=== PATIENT | female | born 1940 | race Two or more races ===

== ENCOUNTER → 2018-11-25 | Emergency (ER) | payer MEDICARE, OTHER ==
[~2018-11-25] VITALS: Ht 157.5 cm; Wt 40.4 kg
--- NOTE | 2018-11-25 03:05 | NUR ---
IV LINE INSERTED ON RAC G 20 INTACT AND PATENT WITH GOOD BLOOD RETURN.
[2018-11-25 03:09] LABS: BASOPHILS % (AUTO) 0.6 % (0.0-2.0); EOSINOPHILS % (AUTO) 1.9 % (0.0-6.0); HEMATOCRIT 42 % (33-45); HEMOGLOBIN 14.2 g/dL (11.5-14.8); LYMPHOCYTES # (AUTO) 1.4 /CMM (0.8-4.8); LYMPHOCYTES % (AUTO) 26.4 % (20.0-44.0); MEAN CORPUSCULAR HGB CONC 34 g/dl (31.0-36.0); MEAN CORPUSCULAR VOLUME 93 fL (82-100); MONOCYTES # (AUTO) 0.6 /CMM (0.1-1.30); MONOCYTES % (AUTO) 10.5 % (2.0-12.0); NEUTROPHILS # (AUTO) 3.3 /CMM (1.8-8.9); NEUTROPHILS % (AUTO) 60.6 % (43.0-81.0); PLATELET COUNT (AUTO) 238 /CMM (150-450); RED BLOOD CELL COUNT(AUTO) 4.53 MIL/uL (4.0-5.2); WHITE BLOOD COUNT (AUTO) 5.4 K/uL (4.3-11.0)
[2018-11-25 03:13] LABS: CALCIUM, SERUM 8.9 mg/dL (8.5-10.1); CARBON DIOXIDE 29 mmol/L (21-32); CHLORIDE 104 mmol/L (98-107); GLUCOSE 97 mg/dL (74-106); POTASSIUM 4.2 mmol/L (3.5-5.1); SODIUM SERUM 143 mmol/L (136-145); UREA NITROGEN, BLOOD 18 mg/dL (7-18)
--- NOTE | 2018-11-25 03:13 | NUR ---
CXR DONE AT BEDSIDE.
--- NOTE | 2018-11-25 05:14 | NUR ---
Patient discharged to home in stable condition. Written and verbal after care instructions given. Patient verbalizes understanding of instruction. VSS.Pt. ambulatory with a steady gait. IV removed. Catheter intact and site benign. Pressure and 4x4 applied to site. No bleeding noted.
[2018-11-25 05:17] VITALS: BP 143/85
== END | disposition home or self-care (01) ==
LOC: ER 02:24
DX: F41.0 Panic disorder [episodic paroxysmal anxiety] (principal); I10 Essential (primary) hypertension; Z90.710 Acquired absence of both cervix and uterus; Z85.850 Personal history of malignant neoplasm of thyroid; Z98.890 Other specified postprocedural states
CPT/HCPCS: 36415; 71045-TC; 80048-TC; 84484-TC; 85025-TC

== ENCOUNTER 2019-01-27 07:57 | Inpatient (IN) | payer MEDICARE, OTHER ==
[~2019-01-27] VITALS: Ht 157.5 cm; Wt 39.5 kg
--- NOTE | 2019-01-27 08:08 | NUR ---
from [facility] ([facility]), bb ems to er - c/o chest pain, started at 0600 am today
--- NOTE | 2019-01-27 08:20 | NUR ---
IV LINE ESTABLISHED ON R FA G20 IV. BLOOD DRAWN AND SENT TO LAB. PATIENT ATTACHED TO THE COMMERCIAL ELECTRICIAN.
[2019-01-27 08:29] LABS: BASOPHILS % (AUTO) 0.7 % (0.0-2.0); EOSINOPHILS % (AUTO) 0.6 % (0.0-6.0); HEMATOCRIT 43 % (33-45); HEMOGLOBIN 14.6 g/dL (11.5-14.8); LYMPHOCYTES # (AUTO) 0.7 /CMM (0.8-4.8); LYMPHOCYTES % (AUTO) 13.4 % (20.0-44.0); MEAN CORPUSCULAR HGB CONC 34 g/dl (31.0-36.0); MEAN CORPUSCULAR VOLUME 93 fL (82-100); MONOCYTES # (AUTO) 0.4 /CMM (0.1-1.30); MONOCYTES % (AUTO) 6.5 % (2.0-12.0); NEUTROPHILS # (AUTO) 4.3 /CMM (1.8-8.9); NEUTROPHILS % (AUTO) 78.8 % (43.0-81.0); PLATELET COUNT (AUTO) 241 /CMM (150-450); RED BLOOD CELL COUNT(AUTO) 4.62 MIL/uL (4.0-5.2); WHITE BLOOD COUNT (AUTO) 5.4 K/uL (4.3-11.0)
[2019-01-27 08:34] LABS: CALCIUM, SERUM 9.3 mg/dL (8.5-10.1); CARBON DIOXIDE 28 mmol/L (21-32); CHLORIDE 103 mmol/L (98-107); CREATININE 0.9 mg/dL (0.6-1.3); GLUCOSE 98 mg/dL (74-106); POTASSIUM 3.3 mmol/L (3.5-5.1); SODIUM SERUM 142 mmol/L (136-145); UREA NITROGEN, BLOOD 12 mg/dL (7-18)
--- NOTE | 2019-01-27 08:57 | NUR ---
PCP: Dr. Chucho Painting Internal medicine [address] [address] [phone]
[2019-01-27] MEDS ORDERED: TYL2T PO (09:07)
[2019-01-27] MEDS ORDERED: ACET325T53 PO (09:22)
[2019-01-27] MEDS ORDERED: ZOLP5TAB2 PO (09:22)
[2019-01-27] MEDS ORDERED: DOCU-141 PO (09:22)
[2019-01-27] MEDS ORDERED: RANI150T8 PO (09:22)
[2019-01-27] MEDS ORDERED: BISA10SU61 RC (09:22)
[2019-01-27] MEDS ORDERED: NA P66.6 RC (09:22)
[2019-01-27] MEDS ORDERED: CLON0.5T PO (09:22)
[2019-01-27] MEDS ORDERED: [UNRECOGNIZED DRUG - OTHER] PO (09:22)
[2019-01-27] MEDS ORDERED: MAGN400O6 PO (09:22)
[2019-01-27] MEDS ORDERED: METO-357 PO (09:22)
[2019-01-27] MEDS ORDERED: AMLO2.5T2 PO (09:22)
[2019-01-27] MEDS ORDERED: SERT25TA PO (09:22)
[2019-01-27] MEDS ORDERED: ASPI-605 PO (09:22)
[2019-01-27] MEDS ORDERED: OLME20TA13 PO (09:22)
[2019-01-27] MEDS ORDERED: SENN-175 PO (09:22)
[2019-01-27] MEDS ORDERED: LEVO25TA7 PO (09:22)
--- NOTE | 2019-01-27 09:35 | NUR ---
REPORT GIVEN TO ROB ADAMSON FOR ARANZA.
--- NOTE | 2019-01-27 10:08 | NUR ---
PATIENT TRANSFERRED TO ROOM 107 VIA ACLS PROTOCOL, IN STABLE CONDITION.
[2019-01-27] MEDS ORDERED: MAGNESIUM HYDROXIDE 30 ML UDC PO PRN (11:30)
[2019-01-27] MEDS ORDERED: BISACODYL SUPP (10 MG) 10 MG/SUPP.RECT SUPP.RECT RC PRN (11:30)
[2019-01-27] MEDS ORDERED: ACETAMINOPHEN 325 MG TABLET PO PRN (11:30)
[2019-01-27 12:00] VITALS: BP 137/67
[2019-01-27] MEDS ORDERED: LORAZEPAM 0.5 MG TABLET PO ONE (12:00)
[2019-01-27] MEDS ORDERED: NA PHOS,M-B/NA PHOS,DI-BA 1 EA ENEMA RC PRN (12:00)
[2019-01-27] MEDS: ENOXAPARIN SODIUM 40 MG/0.4 ML DISP.SYRIN SQ SCH (12:12)
[2019-01-27] MEDS ORDERED: IOHEXOL-350 100 ML VIAL IV ONE (14:49)
[2019-01-27] MEDS ORDERED: CT SWABBABLE VALVE TRANS SET 1 EA INFUS.SET MC ONE (14:49)
[2019-01-27] MEDS ORDERED: IV NS 0.9% 250 ML IV ONE ×2 (14:50)
[2019-01-27] MEDS ORDERED: NITROGLYCERIN 0.4 MG/TAB BOTTLE SL ONE (15:00)
[2019-01-27] MEDS ORDERED: METOPROLOL TARTRATE INJ 5 MG/5 ML AMPUL IVP ONE (15:00)
[2019-01-27 16:00] VITALS: BP 105/68
[2019-01-27] MEDS: ACETAMINOPHEN 325 MG TABLET PO PRN (17:47)
[2019-01-27] MEDS: AMLODIPINE BESYLATE 2.5 MG TABLET PO SCH (17:47)
[2019-01-27] MEDS: DOCUSATE SODIUM 100 MG CAPSULE PO SCH (17:54)
--- NOTE | 2019-01-27 19:25 | NUR ---
RN OPENING NOTES RECEIVED PATIENT VIA GURNEY FROM ER. SHE IS AOX4, VERBAL, AND AMBULATORY. SHE DENIES ANY PAIN OR DISCOMFORT AT THIS TIME. SKIN IS INTACT, NO WOUNDS NOTICED OPEN ADMISSION. FAMILY HISTORY OBTAINED. LUNG SOUNDS CLEAR ON ALL HOROWITZ. ABDOMEN IS SOFT, HYPERACTIVE. EYES ARE PERRLA. NOSE, MOUTH, EARS HAVE NO ABNORMALITIES. ALLERGIES DOCUMENTED AND IN PT CHART. EXTREMITIES HAVE NORMAL STRENGTH, PT HAS STEADY GAIT. SAFETY MEASURES HAVE BEEN IMPLEMENTED, CALL LIGHT IS WITHIN REACH, BED IS IN LOWEST AND LOCKED POSITION, SIDE RAILS UP X2, WILL CONTINUE TO MONITOR FOR ANY CHANGES Addendum: 01/27/19 at 1929 by JAVIER LINARES RN WRONG TIME: PT CAME INTO THE UNIT AT 1000
--- NOTE | 2019-01-27 19:29 | NUR ---
RN CLOSING NOTES PATIENT IS RESTING COMFORTABLY AT THIS TIME, DENIES ANY PAIN OR DISCOMFORT. PT NEEDS MET, VITAL SIGNS ARE STABLE. NO ACUTE CHANGES OCCURRED THROUGHOUT THE SHIFT. IV SITE ON LEFT AC 18 G PATENT AND INTACT. SAFETY MEASURES HAVE BEEN IMPLEMENTED, CALL LIGHT IS WITHIN REACH, BED IS IN LOWEST AND LOCKED POSITION, SIDE RAILS UP X2, PT HAS BEEN ENDORSED TO NIGHTSHIFT RN FOR CONTINUITY OF CARE
[2019-01-27 20:00] VITALS: BP 109/53
[2019-01-27] MEDS: SENNOSIDES 8.6 MG TABLET PO SCH (21:35)
[2019-01-27] MEDS: clonazePAM 0.5 MG TABLET PO SCH (21:35)
[2019-01-27] MEDS: METOPROLOL SUCCINATE 50 MG TAB.SR.24H PO SCH (21:36)
[2019-01-28 04:00] VITALS: BP 120/59
[2019-01-28 05:59] LABS: EOSINOPHILS % (AUTO) 2.7 % (0.0-6.0); HEMATOCRIT 39 % (33-45); HEMOGLOBIN 13.2 g/dL (11.5-14.8); LYMPHOCYTES # (AUTO) 0.8 /CMM (0.8-4.8); LYMPHOCYTES % (AUTO) 21.8 % (20.0-44.0); MEAN CORPUSCULAR HGB CONC 34 g/dl (31.0-36.0); MEAN CORPUSCULAR VOLUME 93 fL (82-100); MONOCYTES # (AUTO) 0.4 /CMM (0.1-1.30); MONOCYTES % (AUTO) 9.4 % (2.0-12.0); NEUTROPHILS # (AUTO) 2.5 /CMM (1.8-8.9); NEUTROPHILS % (AUTO) 65.1 % (43.0-81.0); PLATELET COUNT (AUTO) 214 /CMM (150-450); RED BLOOD CELL COUNT(AUTO) 4.21 MIL/uL (4.0-5.2); WHITE BLOOD COUNT (AUTO) 3.8 K/uL (4.3-11.0)
[2019-01-28 06:58] LABS: THYROID STIMULATING HORMONE 23.341 uIU/mL (0.358-3.74)
[2019-01-28 07:01] LABS: ALBUMIN 3.1 g/dL (3.4-5.0); BILIRUBIN,TOTAL 0.5 mg/dL (0.2-1.0); CALCIUM, SERUM 8.9 mg/dL (8.5-10.1); CREATININE 0.9 mg/dL (0.6-1.3); MAGNESIUM 1.9 mg/dL (1.8-2.4); PHOSPHORUS 3.8 mg/dL (2.5-4.9); POTASSIUM 3.1 mmol/L (3.5-5.1); TOTAL PROTEIN, SERUM 6.5 g/dL (6.4-8.2)
[2019-01-28 08:00] VITALS: BP 120/74
--- NOTE | 2019-01-28 08:00 | NUR ---
MS RN NOTES RECEIVED PT SITTING IN BED COMFORTABLY, A/O X4. NO SIGN OF DISCOMFORT NOTED AT THIS TIME. DENIES ANY PAIN OR DISCOMFORT. IV SITE ON LEFT AC 18 G PATENT AND INTACT FLUSHED WITH SALINE WELL. ALL SAFETY MEASURES HAVE BEEN IMPLEMENTED, CALL LIGHT IS WITHIN REACH, BED IS IN LOWEST POSITION AND LOCKED , SIDE RAILS UP X2.
[2019-01-28] MEDS ORDERED: LEVOTHYROXINE SODIUM 25 MCG TABLET PO SCH (09:00)
[2019-01-28] MEDS: LOSARTAN POTASSIUM 50 MG TABLET PO SCH (09:00)
[2019-01-28] MEDS: SERTRALINE HCL 25 MG TABLET PO SCH (09:16)
[2019-01-28] MEDS: ASPIRIN EC 81 MG TABLET.DR PO SCH (09:17)
[2019-01-28] MEDS: AMLODIPINE BESYLATE 2.5 MG TABLET PO SCH ×2 (09:17→18:03)
[2019-01-28] MEDS: clonazePAM 0.5 MG TABLET PO SCH ×2 (09:18→21:22)
[2019-01-28] MEDS: ENOXAPARIN SODIUM 40 MG/0.4 ML DISP.SYRIN SQ SCH (09:22)
[2019-01-28] MEDS: POTASSIUM CHLORIDE 20 MEQ TAB.PRT.SR PO SCH ×2 (11:35→13:54)
[2019-01-28 16:00] VITALS: BP 126/65
[2019-01-28] MEDS: DOCUSATE SODIUM 100 MG CAPSULE PO SCH (17:13)
--- NOTE | 2019-01-28 17:13 | NUR ---
MS RN NOTES PT HAD BM TODAY AND COLACE WAS HELD.
[2019-01-28] MEDS ORDERED: RIVAROXABAN 10 MG TABLET PO SCH (18:00)
--- NOTE | 2019-01-28 19:10 | NUR ---
MS RN NOTES CLOSING PATIENT IS SITTING IN THE BED COMFORTABLY A/O X4. PT FRIEND AT BEDSIDE. DENIES ANY PAIN OR DISCOMFORT. ALL PT NEEDS MET, VITAL SIGNS ARE STABLE. NO SUDDEN CHANGES OCCURRED THROUGHOUT THE SHIFT. PT WAS AMBULATORY AND SHE WALKED IN HALLWAY DURING DAY. IV SITE ON LEFT AC 18 G PATENT AND INTACT, FLUSHED WELL WITH NS. SAFETY MEASURES HAVE BEEN IMPLEMENTED, CALL LIGHT IS WITHIN REACH, BED IS IN LOWEST AND LOCKED POSITION, SIDE RAILS UP X2, PT HAS BEEN ENDORSED TO NIGHTSHIFT RN .
[2019-01-28 20:00] VITALS: BP 132/87
--- NOTE | 2019-01-28 20:00 | NUR ---
RN NOTE PATIENT REQUESTED TO SHOWER WITH ASSISTANCE, CALLED DR TAMIKO PEIRCE, PER DR TAMIKO PARK TO SHOWER, ALL SAFETY MEASURES TAKEN
[2019-01-28] MEDS: SENNOSIDES 8.6 MG TABLET PO SCH ×2 (21:22→21:25)
[2019-01-28] MEDS: METOPROLOL SUCCINATE 50 MG TAB.SR.24H PO SCH (21:22)
[2019-01-29] MEDS: ACETAMINOPHEN 325 MG TABLET PO PRN (01:07)
[2019-01-29 04:00] VITALS: BP 115/72
[2019-01-29 06:13] LABS: BASOPHILS # (AUTO) 0.1 /CMM (0.0-0.2); BASOPHILS % (AUTO) 1.7 % (0.0-2.0); EOSINOPHILS % (AUTO) 2.9 % (0.0-6.0); HEMATOCRIT 38 % (33-45); LYMPHOCYTES # (AUTO) 0.9 /CMM (0.8-4.8); LYMPHOCYTES % (AUTO) 23.4 % (20.0-44.0); MEAN CORPUSCULAR HGB CONC 34 g/dl (31.0-36.0); MEAN CORPUSCULAR VOLUME 93 fL (82-100); MONOCYTES # (AUTO) 0.4 /CMM (0.1-1.30); MONOCYTES % (AUTO) 10.8 % (2.0-12.0); NEUTROPHILS # (AUTO) 2.3 /CMM (1.8-8.9); NEUTROPHILS % (AUTO) 61.2 % (43.0-81.0); PLATELET COUNT (AUTO) 208 /CMM (150-450); RED BLOOD CELL COUNT(AUTO) 4.12 MIL/uL (4.0-5.2); WHITE BLOOD COUNT (AUTO) 3.8 K/uL (4.3-11.0)
[2019-01-29 06:47] LABS: CALCIUM, SERUM 8.8 mg/dL (8.5-10.1); CREATININE 0.8 mg/dL (0.6-1.3); MAGNESIUM 2.1 mg/dL (1.8-2.4); PHOSPHORUS 3.5 mg/dL (2.5-4.9); POTASSIUM 3.6 mmol/L (3.5-5.1)
--- NOTE | 2019-01-29 07:12 | NUR ---
RN NOTE PATIENT WOULD LIKE DR COELHO TO SPEAK TO DR PISANO HER PRIMARY PICC NURSE TO DISCUSS ANXIETY ISSUES, WILL ENDORSE TO AM SHIFT TO LET DR COELHO ONCE HE SEES PATIENT
[2019-01-29 08:00] VITALS: BP 129/60
[2019-01-29] MEDS: clonazePAM 0.5 MG TABLET PO SCH (08:31)
[2019-01-29] MEDS: LOSARTAN POTASSIUM 50 MG TABLET PO SCH (08:33)
[2019-01-29] MEDS: SERTRALINE HCL 25 MG TABLET PO SCH (08:34)
[2019-01-29] MEDS: ASPIRIN EC 81 MG TABLET.DR PO SCH (08:34)
--- NOTE | 2019-01-29 08:40 | NUR ---
MS RN NOTE PT IS CRYING AND WORRIED TO HAVE PANIC ATTACK. TRIED TO CALM PT AND ALL MEDS TO BE GIVEN. WILL CONT' TO MONITOR.
[2019-01-29] MEDS ORDERED: LEVOTHYROXINE SODIUM 25 MCG TABLET PO SCH (09:00)
--- NOTE | 2019-01-29 09:30 | NUR ---
RN MS NOTE PT ASKED TO ASK OUR MANAGER WOUND TO CALL HER MANAGER WOUND (DR. SELENA PATEL [phone]). DR COELHO MADE AWARE.
[2019-01-29] MEDS: AMLODIPINE BESYLATE 2.5 MG TABLET PO SCH (09:44)
[2019-01-29] MEDS ORDERED: RIVA10TA PO (11:32)
--- NOTE | 2019-01-29 14:11 | NUR ---
MS RN NOTE RECEIVED A CALL FROM PATIENT'S PSYCHOLOGIST, DR. JUSTIN AND PER HER PATIENT IS HAVING PSYCH ISSUES AND IT IS NOT SAFE TO BE DISCHARGED TO HOME. CHARGE NURSE MADE AWARE.
[2019-01-29 16:00] VITALS: BP 138/68
--- NOTE | 2019-01-29 16:25 | NUR ---
RN MS NOTE PARAMEDICS AT BEDSIDE. PT TO BE DISCHARGED TO THE [facility]. PT REFUSED TO GO TO THE REHAB AND WANTS TO GO HOME. INDUSTRIAL ECONOMIST CAME AND TALKED TO THE PT. PT DISCHARGED TO THE REHAB. VS TABLE.
== END 2019-01-29 17:46 | DRG 313 ==
LOC: ER 07:58 → TELE1 09:22 → MEDSG1 12:00
PROVIDERS: ADMIT Nurse Practitioner Acute Care; ATTEND Internal Medicine
DX: R07.89 Other chest pain (principal); E44.0 Moderate protein-calorie malnutrition; Z68.1 Body mass index [BMI] 19.9 or less, adult; F45.9 Somatoform disorder, unspecified; F41.9 Anxiety disorder, unspecified; F32.9 Major depressive disorder, single episode, unspecified; E87.6 Hypokalemia; I10 Essential (primary) hypertension; I25.2 Old myocardial infarction; Z90.710 Acquired absence of both cervix and uterus; I51.3 Intracardiac thrombosis, not elsewhere classified; E89.0 Postprocedural hypothyroidism; I25.10 Atherosclerotic heart disease of native coronary artery without angina pectoris
CPT/HCPCS: 36415; 71045-TC; 75574; 80048-TC; 80053-TC; 80061-TC; 83540-TC; 83735-TC; 84100-TC; 84443-TC; 84484-TC; 85025-TC; 87081-TC; 93307-TC; G0378; J1650; J7050; Q9967

== ENCOUNTER 2019-01-31 09:57 | Emergency (ER) | payer MEDICARE, OTHER ==
[~2019-01-31] VITALS: Ht 154.9 cm; Wt 39.9 kg
[~2019-01-31 09:57] MED LIST: ACET325T53 PO; AMLO2.5T2 PO; ASPI-605 PO; BISA10SU61 RC; CLON0.5T PO; DOCU-141 PO; LEVO25TA7 PO; MAGN400O6 PO; METO-357 PO; NA P66.6 RC; OLME20TA13 PO; RANI150T8 PO; RIVA10TA PO; SENN-175 PO; SERT25TA PO; TYL2T PO; ZOLP5TAB2 PO; [UNRECOGNIZED DRUG - OTHER] PO
--- NOTE | 2019-01-31 10:24 | NUR ---
ASSUME PT CARE, PT IS ANXIOUS STATING SHE'S BEEN HAVING CHEST PAIN AND SEVERE PANIC ATTACKS FOR A WHILE NOW. WAS SEEN IN ED 2 DAYS AGO. GOWNED AND PLACED ON MONITOR. PROVIDED W/ COMFORT MEASURES. AWAITING MD LUNA.
--- NOTE | 2019-01-31 10:26 | NUR ---
DR MOORE AT BEDSIDE FOR EVAL.
--- NOTE | 2019-01-31 10:38 | NUR ---
IV LINE STARTED BLOOD DRAWN AND SENT TO LAB.
[2019-01-31 10:41] LABS: BASOPHILS % (AUTO) 0.5 % (0.0-2.0); EOSINOPHILS % (AUTO) 0.3 % (0.0-6.0); HEMATOCRIT 41 % (33-45); HEMOGLOBIN 13.7 g/dL (11.5-14.8); LYMPHOCYTES # (AUTO) 0.7 /CMM (0.8-4.8); LYMPHOCYTES % (AUTO) 15.2 % (20.0-44.0); MEAN CORPUSCULAR HGB CONC 34 g/dl (31.0-36.0); MEAN CORPUSCULAR VOLUME 94 fL (82-100); MONOCYTES # (AUTO) 0.4 /CMM (0.1-1.30); MONOCYTES % (AUTO) 8.7 % (2.0-12.0); NEUTROPHILS # (AUTO) 3.4 /CMM (1.8-8.9); NEUTROPHILS % (AUTO) 75.3 % (43.0-81.0); PLATELET COUNT (AUTO) 232 /CMM (150-450); RED BLOOD CELL COUNT(AUTO) 4.35 MIL/uL (4.0-5.2); WHITE BLOOD COUNT (AUTO) 4.5 K/uL (4.3-11.0)
[2019-01-31 10:47] LABS: CALCIUM, SERUM 9.4 mg/dL (8.5-10.1); CARBON DIOXIDE 27 mmol/L (21-32); CHLORIDE 105 mmol/L (98-107); GLUCOSE 96 mg/dL (74-106); POTASSIUM 3.6 mmol/L (3.5-5.1); SODIUM SERUM 141 mmol/L (136-145); UREA NITROGEN, BLOOD 17 mg/dL (7-18)
--- NOTE | 2019-01-31 11:51 | NUR ---
CALLED TUNNEL MAN CLINICIAN TO SPEAK TO PT. WILL ARRIVE SHORTLY
--- NOTE | 2019-01-31 12:50 | NUR ---
ART BATH DESIGN SALES CONSULTANT AT BEDSIDE FOR EVAL.
--- NOTE | 2019-01-31 13:31 | NUR ---
Patient discharged to home in stable condition. Written and verbal after care instructions given. Patient verbalizes understanding of instruction.IV removed. Catheter intact and site benign. Pressure and 4x4 applied to site. No bleeding noted.
[2019-01-31 13:32] VITALS: BP 145/82
== END 2019-01-31 13:33 | disposition home or self-care (01) ==
LOC: ER 10:01
DX: F41.9 Anxiety disorder, unspecified (principal); R11.0 Nausea; G89.29 Other chronic pain; J90 Pleural effusion, not elsewhere classified; I11.9 Hypertensive heart disease without heart failure; I70.0 Atherosclerosis of aorta; Z90.710 Acquired absence of both cervix and uterus; Z98.890 Other specified postprocedural states; Z60.2 Problems related to living alone; Z79.82 Long term (current) use of aspirin; Z88.1 Allergy status to other antibiotic agents; Z88.6 Allergy status to analgesic agent; Z88.5 Allergy status to narcotic agent; Z91.048 Other nonmedicinal substance allergy status; Z88.3 Allergy status to other anti-infective agents; Z88.8 Allergy status to other drugs, medicaments and biological substances; Z88.9 Allergy status to unspecified drugs, medicaments and biological substances
CPT/HCPCS: 36415; 71045-TC; 80048-TC; 84484-TC; 85025-TC

== ENCOUNTER 2019-02-09 08:15 | Emergency (ER) | payer MEDICARE, OTHER ==
[~2019-02-09] VITALS: Ht 154.9 cm; Wt 42.2 kg
[2019-02-09] MEDS ORDERED: LOSARTAN POTASSIUM 50 MG TABLET PO ONE (08:18)
--- NOTE | 2019-02-09 08:25 | NUR ---
LE RAYMUNDO From Home "was having chest pain/pressure last night - to shoulders took extra dose amlodipine. Pain gone now" Patient a/ox4, appears to be anxious. No distress noted, needs attended. EMT tech at bedside for EKG.
--- NOTE | 2019-02-09 08:50 | NUR ---
PATIENT SEEN AND EXAMINED BY DR. NOVAK.
[2019-02-09 09:10] LABS: BASOPHILS % (AUTO) 0.9 % (0.0-2.0); HEMATOCRIT 43 % (33-45); HEMOGLOBIN 14.3 g/dL (11.5-14.8); LYMPHOCYTES # (AUTO) 0.7 /CMM (0.8-4.8); LYMPHOCYTES % (AUTO) 13.6 % (20.0-44.0); MEAN CORPUSCULAR HGB CONC 33 g/dl (31.0-36.0); MEAN CORPUSCULAR VOLUME 94 fL (82-100); MONOCYTES # (AUTO) 0.3 /CMM (0.1-1.30); MONOCYTES % (AUTO) 5.9 % (2.0-12.0); NEUTROPHILS # (AUTO) 3.8 /CMM (1.8-8.9); NEUTROPHILS % (AUTO) 78.6 % (43.0-81.0); PLATELET COUNT (AUTO) 238 /CMM (150-450); RED BLOOD CELL COUNT(AUTO) 4.55 MIL/uL (4.0-5.2); WHITE BLOOD COUNT (AUTO) 4.9 K/uL (4.3-11.0)
[2019-02-09 09:29] LABS: CALCIUM, SERUM 9.1 mg/dL (8.5-10.1); POTASSIUM 3.4 mmol/L (3.5-5.1)
[2019-02-09] MEDS ORDERED: LOSARTAN POTASSIUM 25 MG TABLET PO ONE (10:30)
--- NOTE | 2019-02-09 11:00 | NUR ---
PATIENT DENIES PAIN AT THIS TIME. VITALS STABLE. NO DISTRESS NOTED.
--- NOTE | 2019-02-09 12:54 | NUR ---
Patient ambulatory with a steady gait. IV removed. Catheter intact and site benign. Pressure and 4x4 applied to site. No bleeding noted.Patient discharged to home in stable condition. Written and verbal after care instructions given. Patient verbalizes understanding of instruction.
[2019-02-09 12:55] VITALS: BP 125/76
== END 2019-02-09 12:55 | disposition home or self-care (01) ==
LOC: ER 08:17
DX: R07.89 Other chest pain (principal); F41.9 Anxiety disorder, unspecified; F43.10 Post-traumatic stress disorder, unspecified; I10 Essential (primary) hypertension; I21.9 Acute myocardial infarction, unspecified; R11.0 Nausea; Z90.710 Acquired absence of both cervix and uterus; Z98.890 Other specified postprocedural states; Z60.2 Problems related to living alone; Z79.82 Long term (current) use of aspirin; Z91.048 Other nonmedicinal substance allergy status; Z88.1 Allergy status to other antibiotic agents; Z88.8 Allergy status to other drugs, medicaments and biological substances; Z88.3 Allergy status to other anti-infective agents; Z88.6 Allergy status to analgesic agent
CPT/HCPCS: 36415; 80048-TC; 84484-TC; 85025-TC

== ENCOUNTER 2019-04-30 02:33 | Inpatient (IN) | payer MEDICARE, OTHER ==
[~2019-04-30] VITALS: Ht 160 cm; Wt 40.8 kg
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
[2019-04-30] MEDS ORDERED: LORAZEPAM INJ 2 MG/ML VIAL IV ONE (03:00)
[2019-04-30] MEDS ORDERED: IV NS 0.9% 500 ML BAG IV ONE (03:00)
--- NOTE | 2019-04-30 03:01 | NUR ---
IV LINE ESTABLISHED ON RIGHT FORE ARM 20G, BLOOD DRAWN AND SENT TO LAB
[2019-04-30] MEDS ORDERED: LORAZEPAM INJ 2 MG/ML VIAL ONE (03:08)
--- NOTE | 2019-04-30 03:08 | NUR ---
COUNCILLOR ABORIGINAL LAND COUNCIL AT BEDSIDE
[2019-04-30 03:13] LABS: BASOPHILS # (AUTO) 0.1 /CMM (0.0-0.2); BASOPHILS % (AUTO) 0.9 % (0.0-2.0); EOSINOPHILS % (AUTO) 1.2 % (0.0-6.0); HEMATOCRIT 43 % (33-45); HEMOGLOBIN 14.1 g/dL (11.5-14.8); LYMPHOCYTES # (AUTO) 1.3 /CMM (0.8-4.8); LYMPHOCYTES % (AUTO) 24.1 % (20.0-44.0); MEAN CORPUSCULAR HGB CONC 33 g/dl (31.0-36.0); MEAN CORPUSCULAR VOLUME 90 fL (82-100); MONOCYTES # (AUTO) 0.5 /CMM (0.1-1.30); MONOCYTES % (AUTO) 9.4 % (2.0-12.0); NEUTROPHILS # (AUTO) 3.6 /CMM (1.8-8.9); NEUTROPHILS % (AUTO) 64.4 % (43.0-81.0); PLATELET COUNT (AUTO) 315 /CMM (150-450); RED BLOOD CELL COUNT(AUTO) 4.85 MIL/uL (4.0-5.2); WHITE BLOOD COUNT (AUTO) 5.6 K/uL (4.3-11.0)
[2019-04-30 03:16] LABS: CALCIUM, SERUM 9.2 mg/dL (8.5-10.1); POTASSIUM 3.4 mmol/L (3.5-5.1)
[2019-04-30 03:26] LABS: ALBUMIN 3.9 g/dL (3.4-5.0); BILIRUBIN,DIRECT 0.1 mg/dL (0.0-0.2); BILIRUBIN,TOTAL 0.7 mg/dL (0.2-1.0); TOTAL PROTEIN, SERUM 8.6 g/dL (6.4-8.2)
--- NOTE | 2019-04-30 04:04 | NUR ---
PT IS ASLEEP. EASILY AROUSED THROUGH VERBAL AND MECHANICAL STIMULI. CONNECTED TO MONITOR. NOT IN ANY DISTRESS. BREATHING EVENLY AND UNLABORED. NO SOB. CALL LIGHT WITHIN REACH.
--- NOTE | 2019-04-30 05:34 | NUR ---
TELE 113-1
--- NOTE | 2019-04-30 05:54 | NUR ---
REPORT GIVEN TO ELIZABETH ADAMSON FOR ARANZA.
[2019-04-30] MEDS ORDERED: ONDANSETRON HCL/PF 4 MG/2 ML VIAL IVP PRN (06:00)
[2019-04-30] MEDS ORDERED: MAGNESIUM HYDROXIDE 30 ML UDC PO PRN ×2 (06:00)
[2019-04-30] MEDS ORDERED: Z GUARD REMEDY 2 OZ OINT TP PRN (06:00)
[2019-04-30] MEDS ORDERED: MAG HYDROX/AL HYDROX/SIMETH 30 ML UDC PO PRN (06:00)
[2019-04-30] MEDS ORDERED: BISACODYL SUPP (10 MG) 10 MG/SUPP.RECT SUPP.RECT RC PRN (06:00)
[2019-04-30] MEDS ORDERED: NA PHOS,M-B/NA PHOS,DI-BA 1 EA ENEMA RC PRN (06:00)
[2019-04-30] MEDS ORDERED: ZOLPIDEM TARTRATE 5 MG TABLET PO PRN ×2 (06:00)
[2019-04-30] MEDS ORDERED: HYDROCODONE/APAP 5/325MG 1 EACH TABLET PO PRN (06:00)
[2019-04-30] MEDS ORDERED: [UNRECOGNIZED DRUG - OTHER] PO PRN (06:00)
[2019-04-30] MEDS ORDERED: ACETAMINOPHEN 325 MG TABLET PO PRN ×2 (06:00)
--- NOTE | 2019-04-30 06:43 | NUR ---
SURVEILLANCE OBSERVER NOTE PT ARRIVED TO FLOOR VIA GURNEY ACCOMPANIED BY ER STAFF. PT IN STABLE CONDITION A/O X4, NO SIGNS OF SOB OR DISTRESS. NO C/O PAIN OR N/V. IV IN R FA#[address] TELE MONITOR: SR 96. ALL CURRENT NEEDS ATTENDED TO. SAFETY PRECAUTIONS IN PLACE. MD AWARE OF PT ARRIVAL TO FLOOR. BODY ASSESSED, PER REFUSED TO REMOVE BOTTOMS, STATED SHE IS COLD BUT ALSO STATES SHE HAS NO WOUNDS. VITAL SIGNS STABLE. WILL ENDORSE TO NEXT SHIFT FOR ARANZA.
--- NOTE | 2019-04-30 07:30 | NUR ---
RN MS NOTES PT IN BED, AWAKE, ALERT AND ORIENTED, DENIES PAIN, NOT IN DISTRESS, ABLE TO WALK TO THE BATHROOM WITH STEADY GAIT, CALL LIGHT WITHIN REACH, NEEDS ATTENDED.
[2019-04-30 08:00] VITALS: BP 141/84
[2019-04-30] MEDS: ENOXAPARIN SODIUM 30 MG/0.3 ML DISP.SYRIN SQ SCH (09:00)
[2019-04-30] MEDS: FUROSEMIDE 20 MG/2 ML VIAL IV SCH (09:00)
[2019-04-30] MEDS: SERTRALINE HCL 25 MG TABLET PO SCH (09:00)
[2019-04-30] MEDS: AMLODIPINE BESYLATE 2.5 MG TABLET PO SCH ×2 (09:00→17:00)
[2019-04-30] MEDS ORDERED: clonazePAM 0.5 MG TABLET PO SCH (09:00)
[2019-04-30] MEDS: ASPIRIN EC 81 MG TABLET.DR PO SCH (09:16)
[2019-04-30] MEDS: FAMOTIDINE (20 MG) 20 MG TABLET PO SCH ×2 (09:17→21:00)
[2019-04-30 10:27] LABS: THYROID STIMULATING HORMONE 10.55 uIU/mL (0.358-3.74)
[2019-04-30] MEDS: LOSARTAN POTASSIUM 50 MG TABLET PO SCH (11:00)
[2019-04-30] MEDS ORDERED: POTASSIUM CHLORIDE 10 MEQ TABLET.SA PO ONE (11:30)
[2019-04-30] MEDS: LEVOTHYROXINE SODIUM 25 MCG TABLET PO SCH (11:46)
[2019-04-30 12:00] VITALS: BP 114/85
--- NOTE | 2019-04-30 13:00 | NUR ---
RN MS NOTES PT IN BED, SEEN AND EXAMINED BY DR. GOMES AND DR. VEGA MD ORDERED CT ANGIO OF THE HEART, PT REFUSED, SAFETY PRECAUTIONS OBSERVED.
[2019-04-30] MEDS ORDERED: LORAZEPAM 0.5 MG TABLET PO PRN (15:30)
[2019-04-30 16:00] VITALS: BP 134/84
[2019-04-30] MEDS: ACETAMINOPHEN 325 MG TABLET PO PRN (16:28)
[2019-04-30] MEDS ORDERED: RIVAROXABAN 10 MG TABLET PO SCH (17:00)
[2019-04-30] MEDS: DOCUSATE SODIUM 100 MG CAPSULE PO SCH (18:00)
--- NOTE | 2019-04-30 18:08 | NUR ---
RN MS NOTES PT IN BED, AWAKE, ALERT AND ORIENTED, WITH COMPLAINT OF HEADACHE, TYLENOL GIVEN ORDERED, NOT IN DISTRESS, AMBULATES WITH STEADY GAIT, SAFETY PRECAUTIONS OBSERVED, SEEN AND EXAMINED BY DR. MYERS, PLAN OF CARE DISCUSSED WITH PT, VERBALIZED UNDERSTANDING, ALL NEEDS ATTENDED.
--- NOTE | 2019-04-30 19:15 | NUR ---
MS RN NOTES RECEIVED ON SITTING ON EDGE OF BED,DENIES ANY DISCOMFORTS.SALINE LOCK RFA INTACT AND PATENT.AMBULATE WITH STEADY GAIT.CALL LIGHT IN REACH,NEEDS ANTICIPATED.
[2019-04-30 20:00] VITALS: BP 136/86
[2019-04-30] MEDS: METOPROLOL SUCCINATE 50 MG TAB.SR.24H PO SCH ×2 (20:15→22:00)
--- NOTE | 2019-04-30 20:15 | NUR ---
MS RN NOTES BP 136/86,PULSE-73,MEDICATED WITH TOPROL XL 50MG PO,GIVEN EARLY PER PATIENT REQUEST.REFUSED PEPCID AND SENOKOT
[2019-04-30 22:00] VITALS: BP 136/86
[2019-04-30] MEDS: SENNOSIDES 8.6 MG TABLET PO SCH (22:00)
[2019-04-30] MEDS ORDERED: METOPROLOL SUCCINATE 50 MG TAB.SR.24H PO SCH (22:00)
[2019-05-01] MEDS: ACETAMINOPHEN 325 MG TABLET PO PRN ×3 (04:49→20:55)
--- NOTE | 2019-05-01 04:49 | NUR ---
MS RN NOTES C/O HEADACHE,MEDICATED WITH TYLENOL 325MG,PATIENT PREFERS ONLY ONE AND WILL THE OTHER 325 MG LATER.
--- NOTE | 2019-05-01 05:07 | NUR ---
MS RN NOTES AWAKE,AMBULATES IN THE HALLWAYS WITH STEADY GAIT.
[2019-05-01 06:28] LABS: BASOPHILS % (AUTO) 0.5 % (0.0-2.0); EOSINOPHILS % (AUTO) 2.4 % (0.0-6.0); HEMATOCRIT 45 % (33-45); HEMOGLOBIN 14.5 g/dL (11.5-14.8); LYMPHOCYTES # (AUTO) 1.2 /CMM (0.8-4.8); LYMPHOCYTES % (AUTO) 21.9 % (20.0-44.0); MEAN CORPUSCULAR HGB CONC 33 g/dl (31.0-36.0); MEAN CORPUSCULAR VOLUME 90 fL (82-100); MONOCYTES # (AUTO) 0.6 /CMM (0.1-1.30); MONOCYTES % (AUTO) 10.6 % (2.0-12.0); NEUTROPHILS # (AUTO) 3.5 /CMM (1.8-8.9); NEUTROPHILS % (AUTO) 64.6 % (43.0-81.0); PLATELET COUNT (AUTO) 320 /CMM (150-450); RED BLOOD CELL COUNT(AUTO) 4.98 MIL/uL (4.0-5.2); WHITE BLOOD COUNT (AUTO) 5.4 K/uL (4.3-11.0)
--- NOTE | 2019-05-01 06:40 | NUR ---
MS RN NOTES ON BED AWAKE,CLAIMED HEADACHE IMPROVED A LITTLE BIT,ABLE TO WALK ON THE HALLWAYS WITH STEADY GAIT.IN NO ACUTE DISTRESS.WILL ENDORSE TO DAY NURSE FOR ARANZA.
[2019-05-01 06:44] LABS: CALCIUM, SERUM 9.4 mg/dL (8.5-10.1); CREATININE 1.1 mg/dL (0.6-1.3); MAGNESIUM 2.3 mg/dL (1.8-2.4); PHOSPHORUS 3.8 mg/dL (2.5-4.9); POTASSIUM 3.7 mmol/L (3.5-5.1)
[2019-05-01 08:00] VITALS: BP 126/69
[2019-05-01] MEDS: LEVOTHYROXINE SODIUM 25 MCG TABLET PO SCH (08:40)
[2019-05-01] MEDS: SERTRALINE HCL 25 MG TABLET PO SCH (08:41)
[2019-05-01] MEDS: AMLODIPINE BESYLATE 2.5 MG TABLET PO SCH ×2 (09:00→17:00)
[2019-05-01] MEDS: FUROSEMIDE 20 MG/2 ML VIAL IV SCH (09:00)
[2019-05-01] MEDS: FAMOTIDINE (20 MG) 20 MG TABLET PO SCH ×2 (09:00→20:58)
[2019-05-01] MEDS: ENOXAPARIN SODIUM 30 MG/0.3 ML DISP.SYRIN SQ SCH (09:00)
[2019-05-01] MEDS: LOSARTAN POTASSIUM 50 MG TABLET PO SCH (09:00)
[2019-05-01] MEDS: ASPIRIN EC 81 MG TABLET.DR PO SCH (09:01)
[2019-05-01 10:42] VITALS: BP 126/69
--- NOTE | 2019-05-01 14:45 | NUR ---
SNOW MS NOTES PATIENT TAKEN FOR CTA, AWAKE AND ORIENTED X3 AND IN STABLE CONDITION.
[2019-05-01] MEDS ORDERED: IOHEXOL-350 100 ML VIAL IV ONE (14:52)
[2019-05-01] MEDS ORDERED: IV NS 0.9% 250 ML IV ONE (14:52)
[2019-05-01] MEDS ORDERED: METOPROLOL TARTRATE INJ 5 MG/5 ML AMPUL ONE (14:53)
[2019-05-01] MEDS ORDERED: METOPROLOL TARTRATE 50 MG TABLET PO PRN (15:00)
[2019-05-01] MEDS ORDERED: NITROGLYCERIN 0.4 MG/TAB BOTTLE SL PRN (15:00)
[2019-05-01] MEDS: METOPROLOL TARTRATE INJ 5 MG/5 ML AMPUL IVP PRN ×4 (15:00→15:15)
[2019-05-01 15:39] VITALS: BP 129/63
[2019-05-01] MEDS: DOCUSATE SODIUM 100 MG CAPSULE PO SCH (18:00)
--- NOTE | 2019-05-01 19:10 | NUR ---
RN MS CLOSING NOTES PATIENT ALERT AND ORIENTED X3, PATIENT DID NOT WANT TO BE DISCHARGED TONIGHT AND REQUESTED TO STAY OVER NIGHT. PATIENT REQUESTED TO TAKE A SHORT SHOWER. WILL TRANSFER PATIENT CARE TO NEXT SHIFT.
[2019-05-01 19:30] VITALS: BP 138/79
--- NOTE | 2019-05-01 19:30 | NUR ---
MS RN NOTES PATIENT IN BED AWAKE, ALERT AND ORIENTED X 3. BREATHING EVEN AND UNLABORED ON ROOM AIR. DENIES ACUTE RESPIRATORY DISTRESS, NO ACUTE PAIN. IV ON LAC 18G, CLEAN DRY AND INTACT. SHOWS NO SIGNS OF REDNESS, NO INFILTRATION. SAFETY PRECAUTIONS IN PLACE. BED IN LOWEST POSITION LOCKED AND CALL LIGHT KEPT WITHIN REACH. WILL CONTINUE TO MONITOR.
[2019-05-01 20:00] VITALS: BP 138/79
--- NOTE | 2019-05-01 20:55 | NUR ---
MS RN NOTES PATIENT COMPLAINED OF MILD PAIN. GIVEN TYLENOL PRN. WILL CONTINUE TO MONITOR.
[2019-05-01] MEDS: SENNOSIDES 8.6 MG TABLET PO SCH (21:01)
[2019-05-01] MEDS: METOPROLOL SUCCINATE 50 MG TAB.SR.24H PO SCH (21:05)
--- NOTE | 2019-05-01 22:00 | NUR ---
MS RN NOTES PATIENT REFUSED SENOKOT 2200 AND PEPCID 2100. WILL CONTINUE TO MONITOR.
[2019-05-02] VITALS (19 sets, daily range): BP systolic 110–160; BP diastolic 48–86
--- NOTE | 2019-05-02 06:36 | NUR ---
MS RN NOTES PATIENT IN BED AWAKE, ALERT AND ORIENTED X 3. BREATHING EVEN AND UNLABORED ON ROOM AIR. DENIES ACUTE RESPIRATORY DISTRESS, NO ACUTE PAIN. IV ON LAC 18G, CLEAN DRY AND INTACT. SHOWS NO SIGNS OF REDNESS, NO INFILTRATION. ALL DUE MEDICATIONS GIVEN. KEPT NPO AFTER MIDNIGHT. SAFETY PRECAUTIONS IN PLACE. BED IN LOWEST POSITION LOCKED AND CALL LIGHT KEPT WITHIN REACH. WILL ENDORSE TO ONCOMING NURSE
[2019-05-02] MEDS: ENOXAPARIN SODIUM 30 MG/0.3 ML DISP.SYRIN SQ SCH (08:27)
--- NOTE | 2019-05-02 08:28 | NUR ---
patient received npo for the scheduled cardiac catheterization today, ambulating and no signs of untoward manifestations. consent is signed Addendum: 05/02/19 at 0832 by JOSE NIEVES RN DR Allan in and seen patient .
[2019-05-02] MEDS: ASPIRIN EC 81 MG TABLET.DR PO SCH (08:31)
[2019-05-02] MEDS ORDERED: IODIXANOL 0 ML IV ONE (08:55)
[2019-05-02] MEDS: SERTRALINE HCL 25 MG TABLET PO SCH (09:00)
[2019-05-02] MEDS: FAMOTIDINE (20 MG) 20 MG TABLET PO SCH ×2 (09:00→21:00)
[2019-05-02] MEDS: LOSARTAN POTASSIUM 50 MG TABLET PO SCH (09:00)
[2019-05-02] MEDS: LEVOTHYROXINE SODIUM 25 MCG TABLET PO SCH (09:00)
[2019-05-02] MEDS: AMLODIPINE BESYLATE 2.5 MG TABLET PO SCH ×3 (09:00→17:27)
--- NOTE | 2019-05-02 10:15 | NUR ---
with complaints of nausea and anxiety, has allergy to zofran and nausea medication, will inform the physician
--- NOTE | 2019-05-02 10:17 | NUR ---
CHARGE NURSE CALLED CALLED DR GOMES AND INFORMED ABOUT THE PATIENT ANXIETY AND WITH ORDERS AND CARRIED OUT
[2019-05-02] MEDS: LORAZEPAM INJ 2 MG/ML VIAL IV PRN (10:41)
--- NOTE | 2019-05-02 10:42 | NUR ---
lorazepam 0.5 mg vip given for anxiety. jose e lab personell in and explained the procedure to the patient. patient is alert and oriented, Addendum: 05/02/19 at 1044 by JOSE NIEVES RN landscape and yardwork laborer personells in and explained the procedure to the patient and obtaining consent after the explaining of the procedure
--- NOTE | 2019-05-02 11:41 | NUR ---
asleep. npo amnd maintained
[2019-05-02] MEDS ORDERED: IODIXANOL 150 ML IV ONE (12:00)
[2019-05-02] MEDS ORDERED: IV SET PRIMARY PUMP SET 1 EA INFUS.SET MC ONE (12:00)
[2019-05-02] MEDS ORDERED: VERAPAMIL HCL IV 5 MG/2 ML VIAL ONE (12:00)
[2019-05-02] MEDS ORDERED: LIDOCAINE HCL/PF 1% 30 ML SDV ONE (12:00)
[2019-05-02] MEDS ORDERED: IV NS 0.9% 500 ML IV ONE (12:00)
[2019-05-02] MEDS ORDERED: NITROGLYCERIN ICAR 1,000 MCG/10 ML VIAL ICAR ONE (12:01)
[2019-05-02] MEDS ORDERED: HEPARIN SODIUM, PORCINE 1,000 UNIT/ML VIAL ONE (12:21)
[2019-05-02] MEDS ORDERED: FENTANYL PF 100MCG/2ML AMPUL ONE (12:26)
[2019-05-02] MEDS ORDERED: MIDAZOLAM HCL 2 MG/2ML VIAL ONE (12:26)
--- NOTE | 2019-05-02 12:26 | NUR ---
manager cath lab personell in and patient brought to the manager cath lab per hardeep .npo maintained informed consent signed ,
--- NOTE | 2019-05-02 12:47 | NUR ---
patient is still on the laborer road for the ordered procedure
--- NOTE | 2019-05-02 14:01 | NUR ---
patient is out for the scheduled procedure and not back yet
--- NOTE | 2019-05-02 14:15 | NUR ---
MICRO PALEONTOLOGIST ADMITTING NOTES Rec'd pt from pathology laboratory director via lulu, report rec'd from Juarez RN. Pt s/p coroangiogram (diagnostic only per report) by Dr. Bain w/ L radial TR band in place, no bleeding noted, good peripheral pulses, CMS intact. Pt is A/O x 4, denies any pain/discomfort at this time. No SOB while on R/A. SR on telemonitor. Has L AC G18, SL, flushing well, no s/sx of infection/infiltration noted. Safety precaution in place w/ bed in lowest & locked pos. Call light placed w/in reach. Will cont to monitor & attend pt needs.
[2019-05-02] MEDS ORDERED: IV NS 0.9% 1,000 ML IV ONE (14:30)
[2019-05-02] MEDS: ACETAMINOPHEN 325 MG TABLET PO PRN (15:32)
[2019-05-02] MEDS: DOCUSATE SODIUM 100 MG CAPSULE PO SCH (17:28)
--- NOTE | 2019-05-02 18:21 | NUR ---
SCALE ADJUSTER CLOSING NOTES Pt resting in bed comfortably, not in any distress, remains A/O x 4. No c/o SOB while on R/A. SR on telemonitor. IV line access kept patent & intact w/ no s/sx of infection/infiltration w/ NS x 100cc/hr infusing well (to run 5 hrs). L radial s/p TR band removal, negative for bleeding, good peripheral pulses, CMS remains intact. Health teaching re: after care for the catheter insertion site w/ verbalization of understanding but needs reinforcement (has tendency to forget). Safety precaution kept in place at all times w/ bed in lowest & locked pos. Call light placed w/in reach. Pt refused bed alarm despite of health teaching. Will endorse to PM RN for ARANZA.
[2019-05-02] MEDS: SENNOSIDES 8.6 MG TABLET PO SCH (21:14)
[2019-05-02] MEDS: METOPROLOL SUCCINATE 50 MG TAB.SR.24H PO SCH (21:17)
[2019-05-03] VITALS (16 sets, daily range): BP systolic 95–150; BP diastolic 60–97
[2019-05-03 04:54] LABS: EOSINOPHILS % (AUTO) 1.5 % (0.0-6.0); HEMATOCRIT 39 % (33-45); HEMOGLOBIN 12.7 g/dL (11.5-14.8); LYMPHOCYTES # (AUTO) 0.9 /CMM (0.8-4.8); LYMPHOCYTES % (AUTO) 21.2 % (20.0-44.0); MEAN CORPUSCULAR HGB CONC 33 g/dl (31.0-36.0); MEAN CORPUSCULAR VOLUME 88 fL (82-100); MONOCYTES # (AUTO) 0.4 /CMM (0.1-1.30); MONOCYTES % (AUTO) 10.1 % (2.0-12.0); NEUTROPHILS # (AUTO) 2.8 /CMM (1.8-8.9); NEUTROPHILS % (AUTO) 66.2 % (43.0-81.0); PLATELET COUNT (AUTO) 269 /CMM (150-450); WHITE BLOOD COUNT (AUTO) 4.2 K/uL (4.3-11.0)
[2019-05-03 05:00] LABS: CALCIUM, SERUM 8.8 mg/dL (8.5-10.1); CREATININE 0.8 mg/dL (0.6-1.3); POTASSIUM 3.5 mmol/L (3.5-5.1)
--- NOTE | 2019-05-03 07:10 | NUR ---
FIELD TEST ENGINEER INITIAL NOTES Rec'd pt on bed, not in any distress but little bit anxious, A/O x4, denies CP & discomfort. On R/A, sating at 98%. SR on telemonitor. IV line access on RFA G22, SL, patent & intact w/ no s/sx of infection/infiltration noted. L radial negative for bleeding, good peripheral pulses, CMS intact. Pt is ambulatory w/ steady gait. Skin is intact. Safety precaution in place w/ bed in lowest & locked pos. Call light placed w/in reach. Will cont to monitor & attend pt needs.
--- NOTE | 2019-05-03 08:20 | NUR ---
Pt seen & examined by Dr. Allan, spoke w/ the pt at bedside. MD adjusted the Cozaar to 50 mg PO BID. Per MD, may take Synthroid 50 mcg before lunch today & tomorrow may adjust it to every 6:30am.
[2019-05-03] MEDS: LOSARTAN POTASSIUM 50 MG TABLET PO SCH ×2 (08:46→17:12)
[2019-05-03] MEDS: ASPIRIN EC 81 MG TABLET.DR PO SCH (08:47)
[2019-05-03] MEDS: AMLODIPINE BESYLATE 2.5 MG TABLET PO SCH ×2 (08:48→17:12)
[2019-05-03] MEDS: ENOXAPARIN SODIUM 30 MG/0.3 ML DISP.SYRIN SQ SCH (09:00)
[2019-05-03] MEDS: FAMOTIDINE (20 MG) 20 MG TABLET PO SCH ×2 (09:00→21:00)
[2019-05-03] MEDS: SERTRALINE HCL 25 MG TABLET PO SCH (09:20)
--- NOTE | 2019-05-03 10:00 | NUR ---
QUALITY CONTROL CLERKFORWARDER OPERATOR NOTES Pt transferred to MS 310/1 as ordered. Pt remains A/O x 4, no c/o CP but highly anxious. VS WNL. IV line access kept patent & intact w/ no s/sx of infection/infiltration noted. Skin remains intact. L radial still negative for bleeding. All belongings sent w/ pt. Safety precaution kept in place at all times. Report given to Beckie ADAMSON for ARANZA. No concerns/issues identified during transfer.
--- NOTE | 2019-05-03 10:02 | NUR ---
Received patient awake A/O x 4. VS are stable and within baseline, on room air. IV line flushing well. PAtient educated to use call light for assistance.
[2019-05-03] MEDS ORDERED: LEVOTHYROXINE SODIUM 25 MCG TABLET PO ONE (11:30)
[2019-05-03] MEDS: LORAZEPAM INJ 2 MG/ML VIAL IV PRN ×2 (14:21→23:53)
[2019-05-03] MEDS ORDERED: RIVAROXABAN 10 MG TABLET PO SCH (17:00)
[2019-05-03] MEDS: DOCUSATE SODIUM 100 MG CAPSULE PO SCH (17:13)
--- NOTE | 2019-05-03 18:42 | NUR ---
Pt resting in bed comfortably, not in any distress, remains A/O x 4. No c/o SOB and on R/A. IV line access patent & intact. Safety precaution kept in place at all times w/ bed in lowest & locked pos. Call light placed w/in reach. Pt ambulatory with steady gait . Will endorse to next shift RN for ARANZA.
--- NOTE | 2019-05-03 19:15 | NUR ---
RN medsurg opening notes Received Pt from morning nurse. Pt is alert and orientedX4. Respiration is normal. No SOB. No nausea or vomiting. Pt denies any pain or discomfort at this time. IV sites at RFA# 20 is clean, intact, patent and flush without resistance. Instructed to call. Safety precautions is maintained. Bed at low position, brakes locked, side rails upX3 and call light is within reach. Will continue to monitor.
--- NOTE | 2019-05-03 19:59 | NUR ---
RN medsurdavid notes Pt is ambulating in the room and nursing station with a steady gait. NO SOB. Pt denies any pain or discomfort. Will continue to monitor.
--- NOTE | 2019-05-03 20:15 | NUR ---
RN medsur notes Pt is requesting for a shower. Contacting and informed Dr. Huber if Pt can have a shower tonight. Received order for shower. Will continue to monitor.
--- NOTE | 2019-05-03 20:38 | NUR ---
RN medsur notes Pt went to shower and accompanied by PHILLIP Kumar. Will continue to monitor.
--- NOTE | 2019-05-03 20:50 | NUR ---
RN medsurg notes Pt is back from the shower with PHILLIP Kumar. No SOB. No S/S of distress noted. Will continue to monitor.
--- NOTE | 2019-05-03 21:02 | NUR ---
RN medsurg notes Pt refused to take pepcid 20 mg/1 tab/po. Made aware risks and benefits. Pt keep refusing. Pt stated " I don't take this." Will continue to monitor.
[2019-05-03] MEDS: METOPROLOL SUCCINATE 50 MG TAB.SR.24H PO SCH (21:10)
[2019-05-03] MEDS: SENNOSIDES 8.6 MG TABLET PO SCH (21:10)
--- NOTE | 2019-05-03 21:11 | NUR ---
RN medsurg notes Pt refused senokot tab 8.6 mg/1tab/PO. Made aware risks and benefits. Will continue to monitor.
--- NOTE | 2019-05-03 23:53 | NUR ---
RN luis fernando notes Pt is feeling anxious. Administered ativan 0.5mg/0.25 ml as ordered for anxiety per Pt request. Safety precautions is maintained. Will continue to monitor.
[2019-05-04 06:30] LABS: BASOPHILS % (AUTO) 0.5 % (0.0-2.0); EOSINOPHILS % (AUTO) 1.6 % (0.0-6.0); HEMATOCRIT 40 % (33-45); LYMPHOCYTES % (AUTO) 22.8 % (20.0-44.0); MEAN CORPUSCULAR HGB CONC 33 g/dl (31.0-36.0); MEAN CORPUSCULAR VOLUME 89 fL (82-100); MONOCYTES # (AUTO) 0.6 /CMM (0.1-1.30); MONOCYTES % (AUTO) 12.2 % (2.0-12.0); NEUTROPHILS # (AUTO) 2.9 /CMM (1.8-8.9); NEUTROPHILS % (AUTO) 62.9 % (43.0-81.0); PLATELET COUNT (AUTO) 289 /CMM (150-450); RED BLOOD CELL COUNT(AUTO) 4.52 MIL/uL (4.0-5.2); WHITE BLOOD COUNT (AUTO) 4.6 K/uL (4.3-11.0)
[2019-05-04] MEDS ORDERED: LEVOTHYROXINE SODIUM 50 MCG TABLET PO SCH (06:30)
[2019-05-04 06:32] LABS: CALCIUM, SERUM 8.9 mg/dL (8.5-10.1); CREATININE 0.9 mg/dL (0.6-1.3); POTASSIUM 3.7 mmol/L (3.5-5.1)
--- NOTE | 2019-05-04 07:00 | NUR ---
MS/RN Opening note Patient received AOx 4, able to response all stimuli. Respiratory even and unlabored, no SOB or distress observed, skin is warm to touch, stable vital sign. Pt does no c/o chest pain discomfort. Call light within reach, will continue to monitor.
--- NOTE | 2019-05-04 07:00 | NUR ---
RN medsurg closing notes Pt is resting in bed comfortably. Pt is alert and orientedX4. Respiration is normal in room air. No SOB. No S/S of distress noted. VS is stable. IV sites at RFA is clean, intact and patent. Routine meds were given as ordered. Kept Pt clean, dry and comfortable. All needs met and attended. Safety precautions is maintained. Bed at low position, brakes locked, side rails upx3 and call light is within reach. Will endorse to morning nurse for ARANZA.
[2019-05-04 08:00] VITALS: BP 158/94
[2019-05-04] MEDS ORDERED: LOSA50TA3 PO (08:00)
[2019-05-04] MEDS ORDERED: LORA-259 PO (08:13)
[2019-05-04 08:21] VITALS: BP 158/94
[2019-05-04] MEDS: AMLODIPINE BESYLATE 2.5 MG TABLET PO SCH (08:21)
[2019-05-04] MEDS: LOSARTAN POTASSIUM 50 MG TABLET PO SCH (08:21)
[2019-05-04] MEDS: ASPIRIN EC 81 MG TABLET.DR PO SCH (08:24)
[2019-05-04] MEDS: SERTRALINE HCL 25 MG TABLET PO SCH (08:24)
[2019-05-04] MEDS: FAMOTIDINE (20 MG) 20 MG TABLET PO SCH (08:24)
[2019-05-04] MEDS: ACETAMINOPHEN 325 MG TABLET PO PRN (12:01)
--- NOTE | 2019-05-04 15:10 | NUR ---
Patient cleared for D/C by MD. Patient alert and oriented x4, breathing unlabored and even on room air ,with no distress noted. Patient's skin intact. Discharge instruction and new medication education provided, sight effects explained; patient verbalized understanding.D/C papers and valuable form sighed and all belongings with the patient.IV line removed , ID wrist band removed. Patient received prescription for Ativan and rest of meds sent to preferred pharmacy. Patient safely transferred to [facility] via wheelchair accompanied by nurse
[2019-05-25] MEDS ORDERED: DOXA1TAB17 PO (13:41)
== END 2019-05-04 15:26 | disposition home or self-care (01) | DRG 281 ==
LOC: ER 02:34 → TELE1 05:38 → TELE 06:07 → MED 15:08 → ICU 05-02 14:03 → MED 05-03 10:00
PROVIDERS: ADMIT Family Medicine; ATTEND Family Medicine
PROC: 4A023N7 Measurement of Cardiac Sampling and Pressure, Left Heart, Percutaneous Approach (ICD-10-PCS; principal; 2019-05-02)
PROC: B211YZZ Fluoroscopy of Multiple Coronary Arteries using Other Contrast (ICD-10-PCS; 2019-05-02)
DX: I16.0 Hypertensive urgency (principal); I21.A1 Myocardial infarction type 2; I50.32 Chronic diastolic (congestive) heart failure; I25.2 Old myocardial infarction; I11.0 Hypertensive heart disease with heart failure; E87.6 Hypokalemia; R73.9 Hyperglycemia, unspecified; Z79.01 Long term (current) use of anticoagulants; Z95.2 Presence of prosthetic heart valve; E89.0 Postprocedural hypothyroidism; R11.0 Nausea; Z88.2 Allergy status to sulfonamides; Z88.0 Allergy status to penicillin; F43.10 Post-traumatic stress disorder, unspecified; F41.1 Generalized anxiety disorder; F32.9 Major depressive disorder, single episode, unspecified; F41.0 Panic disorder [episodic paroxysmal anxiety]; I25.10 Atherosclerotic heart disease of native coronary artery without angina pectoris; Z88.6 Allergy status to analgesic agent; Z88.8 Allergy status to other drugs, medicaments and biological substances; Z88.1 Allergy status to other antibiotic agents; Z91.048 Other nonmedicinal substance allergy status; Z79.82 Long term (current) use of aspirin; Z79.899 Other long term (current) drug therapy
CPT/HCPCS: 36415; 71045-TC; 75574; 80048-TC; 80061-TC; 80076-TC; 83735-TC; 83880; 84100-TC; 84439-TC; 84443-TC; 84484-TC; 85025-TC; 85730-TC; 87081-TC; 93452; C1887; G0378; J1644; J1650; J1940; J2060; J2250; J3010; J3490; J7030; J7040; J7050; Q9967

== ENCOUNTER 2019-05-09 10:34 | Outpatient (CLI) | payer MEDICARE, OTHER ==
[~2019-05-09 10:34] MED LIST changes: -CLON0.5T PO; +LORA-259 PO; +LOSA50TA3 PO; -OLME20TA13 PO
[2019-05-09 10:40] VITALS: BP 152/94
== END 2019-05-09 23:59 | disposition home or self-care (01) ==
LOC: MSC 10:34
PROVIDERS: ATTEND Internal Medicine
DX: I21.4 Non-ST elevation (NSTEMI) myocardial infarction (principal); I10 Essential (primary) hypertension; I25.10 Atherosclerotic heart disease of native coronary artery without angina pectoris; F41.8 Other specified anxiety disorders; E43 Unspecified severe protein-calorie malnutrition; R64 Cachexia; E89.0 Postprocedural hypothyroidism; Z79.891 Long term (current) use of opiate analgesic; Z79.82 Long term (current) use of aspirin

== ENCOUNTER 2019-05-20 15:34 | Outpatient (CLI) | payer MEDICARE, OTHER ==
[2019-05-25] MEDS ORDERED: DOXA1TAB17 PO (13:41)
== END 2019-05-20 23:59 | disposition home or self-care (01) ==
LOC: MSC 15:34
PROVIDERS: ATTEND Internal Medicine
DX: I25.10 Atherosclerotic heart disease of native coronary artery without angina pectoris (principal); I10 Essential (primary) hypertension; I82.90 Acute embolism and thrombosis of unspecified vein; F41.8 Other specified anxiety disorders; E43 Unspecified severe protein-calorie malnutrition; R64 Cachexia; E89.0 Postprocedural hypothyroidism; Z90.89 Acquired absence of other organs

== ENCOUNTER 2019-05-23 23:08 | Inpatient (IN) | payer MEDICARE, OTHER ==
[~2019-05-23] VITALS: Ht 162.6 cm; Wt 43.1 kg
--- NOTE | 2019-05-23 23:19 | NUR ---
SEEN AND EXAMINED BY
[2019-05-23] MEDS ORDERED: ASPIRIN 81 MG TAB.CHEW ONE (23:24)
--- NOTE | 2019-05-23 23:25 | NUR ---
PT BIB RA FOR CHEST PAIN. PATIENT STATES THAT SHE WAS HOME ALONE AND SHE FELT ANXIOUS AND HAD CHEST PAIN. AAOX4. NO SOB. BREATHING EVENLY AND UNLABORED. CONNECTED TO THE MONITOR.
[2019-05-23] MEDS ORDERED: ASPIRIN 81 MG TAB.CHEW PO ONE (23:30)
[2019-05-23] MEDS ORDERED: LORAZEPAM INJ 2 MG/ML VIAL IV ONE (23:30)
[2019-05-23 23:44] LABS: BASOPHILS # (AUTO) 0.1 /CMM (0.0-0.2); BASOPHILS % (AUTO) 1.1 % (0.0-2.0); EOSINOPHILS % (AUTO) 3.4 % (0.0-6.0); HEMATOCRIT 40 % (33-45); HEMOGLOBIN 13.4 g/dL (11.5-14.8); LYMPHOCYTES # (AUTO) 1.3 /CMM (0.8-4.8); LYMPHOCYTES % (AUTO) 27.4 % (20.0-44.0); MEAN CORPUSCULAR HGB CONC 33 g/dl (31.0-36.0); MEAN CORPUSCULAR VOLUME 88 fL (82-100); MONOCYTES # (AUTO) 0.4 /CMM (0.1-1.30); MONOCYTES % (AUTO) 8.5 % (2.0-12.0); NEUTROPHILS # (AUTO) 2.8 /CMM (1.8-8.9); NEUTROPHILS % (AUTO) 59.6 % (43.0-81.0); PLATELET COUNT (AUTO) 276 /CMM (150-450); RED BLOOD CELL COUNT(AUTO) 4.57 MIL/uL (4.0-5.2); WHITE BLOOD COUNT (AUTO) 4.6 K/uL (4.3-11.0)
[2019-05-23 23:50] LABS: CALCIUM, SERUM 9.1 mg/dL (8.5-10.1); CARBON DIOXIDE 26 mmol/L (21-32); CHLORIDE 104 mmol/L (98-107); GLUCOSE 85 mg/dL (74-106); POTASSIUM 3.9 mmol/L (3.5-5.1); SODIUM SERUM 141 mmol/L (136-145); UREA NITROGEN, BLOOD 24 mg/dL (7-18)
[2019-05-24] MEDS ORDERED: LORAZEPAM 1 MG TABLET ONE (00:16)
[2019-05-24] MEDS ORDERED: LORAZEPAM INJ 2 MG/ML VIAL ONE (00:20)
--- NOTE | 2019-05-24 00:22 | NUR ---
PT IS GOING TO 115-1
[2019-05-24] MEDS ORDERED: IV NS 0.9% 1,000 ML IV PRN (00:30)
[2019-05-24] MEDS ORDERED: ZOLPIDEM TARTRATE 5 MG TABLET PO PRN (00:30)
[2019-05-24] MEDS ORDERED: ONDANSETRON HCL/PF 4 MG/2 ML VIAL IVP PRN (00:30)
[2019-05-24] MEDS ORDERED: HYDROCODONE/APAP 5/325MG 1 EACH TABLET PO PRN (00:30)
[2019-05-24] MEDS ORDERED: ACETAMINOPHEN 325 MG TABLET PO PRN (00:30)
[2019-05-24] MEDS: ATORVASTATIN 40 MG TABLET PO SCH ×3 (00:30→22:12)
--- NOTE | 2019-05-24 00:47 | NUR ---
report given to Fatoumata ADAMSON
[2019-05-24 01:20] VITALS: BP 125/64
--- NOTE | 2019-05-24 01:25 | NUR ---
LAW FIRM PARTNER OPENING NOTES: RECEIVED PT ON ROOM AIR AND IS TOLERATING WELL. NO SOB NOTED. NO S/S OF DISTRESS. PT HAS IV ON R FOREARM #20G AND IS BEING BOLUSED WITH A LITER OF NS FROM ER. PT A/OX3-4. PT TO BE PLACED ON TELE BOX. BED KEPT IN LOW, LOCKED POSITION, AND SIDE RAILS X 2UP. WILL CONTINUE TO MONITOR PT.
--- NOTE | 2019-05-24 01:30 | NUR ---
UPSET OPERATOR NOTES: PT REFUSING TO GIVE HER $164 BENNETT TO SECURITY. WOULD LIKE TO KEEP IT AT BEDSIDE NEXT TO HER.
[2019-05-24] MEDS: IV NS 0.9% 1,000 ML IV PRN (02:20)
[2019-05-24] MEDS: METOPROLOL SUCCINATE 50 MG TAB.SR.24H PO SCH ×2 (02:24→22:12)
--- NOTE | 2019-05-24 03:10 | NUR ---
LIVESTOCK INSPECTOR NOTES: AFTER EXPLANATION OF LIPITOR 40MG , PT STILL REFUSING TO TAKE MEDICATION. PT STATES SHE HAS NEVER TAKEN IT BEFORE AND NO BLOOD TESTS WERE DONE FOR HER CHOLESTEROL.
--- NOTE | 2019-05-24 03:46 | NUR ---
MOLD MAKING SUPERVISOR NOTES: PT REFUSING TO HAVE BED ALARM ON AFTER EXPLAINED TO HER RISKS OF NOT HAVING IT TURNED OFF. PT STILL REFUSING.
[2019-05-24 04:00] VITALS: BP 112/59
--- NOTE | 2019-05-24 06:19 | NUR ---
TRAINING SPECIALIST CLOSING NOTES: ALL NEEDS WERE ATTENDED AND ANTICIPATED FOR. PT KEPT CLEAN, DRY, AND COMFORTABLE. NO SOB NOTED. NO PAIN OR S/S OF DISTRESS. PT HAS IV ON R FOREARM AND IS BEING INFUSED WITH IV NS AT 75ML/HR. PT REFUSING TO HAVE BED ALARM ACTIVATED BUT WAS EDUCATED ON HOW TO USE CALL LIGHT FOR ASSISTANCE. BED KEPT IN LOW, LOCKED POSITION, AND SIDE RAILS X 2UP. PT ON TELE MONITOR AND READING SHOWS SR 64. WILL ENDORSE TO AM NURSE FOR ARANZA.
--- NOTE | 2019-05-24 07:10 | NUR ---
CARE TEAM COORDINATOR SCHEDULER NOTES PATIENT IN BED A/OX4 , AMBULATES WITH ASSISTANCE. NO SOB OR DISCOMFORT NOTED AT THIS TIME. PATIENT HAS ANXIETY WITH BED ALARM, BED ALARM AT OFF POSITION, INSTRUCTED PATIENT TO USE CALL LIGHT FOR USING BATHROOM AND HELP. CALL LIGHT WITHIN REACH , BED AT THE LOWEST POSITION LOCKED. WILL CONTINUE TO MONITOR PATIENT.
[2019-05-24 08:00] VITALS: BP 121/67
[2019-05-24] MEDS: LEVOTHYROXINE SODIUM 25 MCG TABLET PO SCH (08:43)
[2019-05-24] MEDS: FAMOTIDINE (20 MG) 20 MG TABLET PO SCH (09:00)
[2019-05-24] MEDS: SERTRALINE HCL 25 MG TABLET PO SCH (09:00)
[2019-05-24] MEDS: LOSARTAN POTASSIUM 50 MG TABLET PO SCH ×2 (09:24→18:05)
[2019-05-24] MEDS: AMLODIPINE BESYLATE 2.5 MG TABLET PO SCH ×2 (09:24→18:06)
[2019-05-24] MEDS: ASPIRIN 81 MG TAB.CHEW PO SCH (09:29)
[2019-05-24 12:00] VITALS: BP 121/67
[2019-05-24] MEDS: LORAZEPAM 1 MG TABLET PO PRN (15:23)
[2019-05-24] MEDS: RIVAROXABAN 10 MG TABLET PO SCH (17:00)
[2019-05-24] MEDS ORDERED: DOCUSATE SODIUM 100 MG CAPSULE PO SCH (18:00)
--- NOTE | 2019-05-24 19:18 | NUR ---
MS RN NOTES PATIENT A/OX4 IN BED AWAKE. IV ON RIGHT HAND PATIENT NS RUNNING 75ML/HR. NO MAJOR CHANGES DURING SHIFT. ALL NEEDS ATTENDED, ALL MEDS GIVEN.CALL LIGHT WITHIN REACH, BED LOCKED AT THE LOWEST POSITION. ENDORSED TO CASINO MANAGER NURSE FOR ARANZA.
[2019-05-24 20:00] VITALS: BP 116/61
--- NOTE | 2019-05-24 20:01 | NUR ---
RECEIVED ON BED AWAKE ,ALERT AND RESTING COMFORTABLY WITH NO PAIN CLAIMED, AMBULATED TO THE BATHROOM AND ASSITED BACK TO BED , TOLERATED WELL,WITH CALL LIGHT AT BEDSIDE
[2019-05-24] MEDS ORDERED: SENNOSIDES 8.6 MG TABLET PO SCH (22:00)
[2019-05-24] MEDS: DOXAZOSIN MESYLATE (1 MG) 1 MG TABLET PO SCH ×2 (22:00→22:14)
--- NOTE | 2019-05-24 22:53 | NUR ---
refused medications due. only took the metropolol dose. will inform physician in am
[2019-05-25] VITALS: BP 117/65
--- NOTE | 2019-05-25 00:39 | NUR ---
patient for transfer to room 202 and report given to Grace.
--- NOTE | 2019-05-25 00:55 | NUR ---
transfered via bed for further care. will inform the family in am
[2019-05-25 01:00] VITALS: BP_SYST 110; BP_DIAS 64; BP_DIAS 74
--- NOTE | 2019-05-25 01:00 | NUR ---
TRANSFER OF CARE RECEIVE PT VIA BED AT 0053 TRANSFER TO 202 FROM ROOM 115-1 PT A/O X 4, STABLE AND NOT IN APPARENT DISTRESS, KEPT CLEAN, DRY AND COMFORTABLE. SAFETY MEASURES AT ALL TIMES. WILL CONTINUE TO MONITOR. NO C/O PAIN
[2019-05-25] MEDS: IV NS 0.9% 1,000 ML IV PRN (02:23)
--- NOTE | 2019-05-25 06:26 | NUR ---
PT ASLEEP AND EASILY AWAKEN, NO S/S OF DISTRESS. AM CARE RENDERED, KEPT CLEAN, DRY AND COMFORTABLE. ALL NEEDS ATTENDED AND ANTICIPATED, SAFETY MEASURES AT ALL TIMES. WILL ENDORSE NEXT SHIFT POC. PT UPSET BEING TRANSFERRED TO HER NEW ROOM AT 0100. EXPLAINED AND EDUCATE PT. PT VERBALIZED UNDERSTANDING. NO C/O PAIN THROUGHOUT THE SHIFT.
[2019-05-25 06:48] LABS: EOSINOPHILS % (AUTO) 2.9 % (0.0-6.0); HEMATOCRIT 45 % (33-45); HEMOGLOBIN 14.6 g/dL (11.5-14.8); LYMPHOCYTES % (AUTO) 21.6 % (20.0-44.0); MEAN CORPUSCULAR HGB CONC 33 g/dl (31.0-36.0); MEAN CORPUSCULAR VOLUME 88 fL (82-100); MONOCYTES # (AUTO) 0.4 /CMM (0.1-1.30); MONOCYTES % (AUTO) 8.2 % (2.0-12.0); NEUTROPHILS # (AUTO) 3.1 /CMM (1.8-8.9); NEUTROPHILS % (AUTO) 66.3 % (43.0-81.0); PLATELET COUNT (AUTO) 277 /CMM (150-450); RED BLOOD CELL COUNT(AUTO) 5.05 MIL/uL (4.0-5.2); WHITE BLOOD COUNT (AUTO) 4.7 K/uL (4.3-11.0)
[2019-05-25] MEDS: LORAZEPAM 1 MG TABLET PO PRN (06:54)
[2019-05-25 07:03] LABS: CALCIUM, SERUM 9.2 mg/dL (8.5-10.1); CREATININE 0.8 mg/dL (0.6-1.3); MAGNESIUM 2.1 mg/dL (1.8-2.4); PHOSPHORUS 3.2 mg/dL (2.5-4.9); POTASSIUM 3.5 mmol/L (3.5-5.1)
--- NOTE | 2019-05-25 07:18 | NUR ---
RN OPENING NOTE PT WAS RECEIVED IN BED AT LOWEST AND LOCKED POSITION WITH SIDE RAILS UPX2, A/O X4 BREATHING EVEN AND UNLABORED CURRENTLY ASLEEP IN BED WITH NO S/S OF ANY DISTRESS OR PAIN AT THIS TIME, IV IS PATENT AND INTACT, AWAITING PSYCH CONSULT, SAFETY PRECAUTIONS IN PLACE, CALL LIGHT IN REACH, WILL MONITOR ACCORDINGLY
[2019-05-25 07:28] LABS: THYROID STIMULATING HORMONE 19.142 uIU/mL (0.358-3.74)
[2019-05-25 08:00] VITALS: BP 141/88
[2019-05-25] MEDS: LEVOTHYROXINE SODIUM 25 MCG TABLET PO SCH (08:15)
[2019-05-25 08:28] VITALS: BP 141/88
[2019-05-25] MEDS: LOSARTAN POTASSIUM 50 MG TABLET PO SCH ×2 (08:28→17:00)
[2019-05-25] MEDS: AMLODIPINE BESYLATE 2.5 MG TABLET PO SCH ×2 (08:28→17:00)
[2019-05-25] MEDS: ASPIRIN 81 MG TAB.CHEW PO SCH (08:54)
[2019-05-25] MEDS: FAMOTIDINE (20 MG) 20 MG TABLET PO SCH (08:56)
[2019-05-25] MEDS: SERTRALINE HCL 25 MG TABLET PO SCH (09:04)
[2019-05-25] MEDS ORDERED: LORAZEPAM 1 MG TABLET PO PRN (10:30)
--- NOTE | 2019-05-25 10:45 | NUR ---
RN NOTE PER DR.KERZUMA HAYS TO D/C IVF AND TO ORDER ATIVAN 1MG PO Q12H PRN FOR PT DUE TO ANXIETY
--- NOTE | 2019-05-25 10:55 | NUR ---
RN NOTE [facility] UNIT CALLED TO SEE IF PSYCH CONSULT WAS REQUESTED, PER ANTHROPOLOGY INSTRUCTOR THEY ARE AWARE OF PSYCH CONSULT AND INFORMED THAT WILL BE SEEING PT TODAY, WILL AWAIT FOR CONSULT
--- NOTE | 2019-05-25 12:57 | NUR ---
RN NOTE PER PT CAN LEAVE ONCE MEDICALLY STABLE, WILL INFORM
[2019-05-25] MEDS ORDERED: DOXA1TAB17 PO (13:41)
--- NOTE | 2019-05-25 16:58 | NUR ---
DISCHARGE NOTE PT WAS D/C AT THIS TIME IN MEDICALLY STABLE CONDITION BACK HOME VIA LYFT. IV AND ID BAND WERE REMOVED. PT REFUSED TO HAVE PHOTOS OF SKIN TAKEN. ALL D/C PAPERWORK, EXITCARE, AND BELONGINGS LIST WERE SIGNED, DISCUSSED, AND HANDED TO THE PATIENT. ALL NEEDS WERE ATTENDED TO DURING HER STAY. PT LEFT AT THIS TIME IN MEDICALLY STABLE CONDITION VIA LYFT IN A [facility].
[2019-05-25] MEDS: RIVAROXABAN 10 MG TABLET PO SCH (17:00)
== END 2019-05-25 16:58 | disposition home or self-care (01) | DRG 302 ==
LOC: ER 23:12 → TELE1 05-24 01:00 → MEDSG1 05-24 09:37 → MEDSG2 05-25 01:43
PROVIDERS: ADMIT Student in an Organized Health Care Education/Training Program; ATTEND Student in an Organized Health Care Education/Training Program
DX: I25.10 Atherosclerotic heart disease of native coronary artery without angina pectoris (principal); E43 Unspecified severe protein-calorie malnutrition; D68.59 Other primary thrombophilia; R64 Cachexia; I10 Essential (primary) hypertension; Z79.899 Other long term (current) drug therapy; Z79.890 Hormone replacement therapy; Z79.82 Long term (current) use of aspirin; Z79.01 Long term (current) use of anticoagulants; Z90.710 Acquired absence of both cervix and uterus; I25.2 Old myocardial infarction; E89.0 Postprocedural hypothyroidism; E87.6 Hypokalemia; Z88.6 Allergy status to analgesic agent; Z88.1 Allergy status to other antibiotic agents; Z88.2 Allergy status to sulfonamides; Z88.8 Allergy status to other drugs, medicaments and biological substances; Z91.048 Other nonmedicinal substance allergy status; F43.10 Post-traumatic stress disorder, unspecified; I51.3 Intracardiac thrombosis, not elsewhere classified
CPT/HCPCS: 36415; 71045-TC; 80048-TC; 80061-TC; 83735-TC; 84100-TC; 84439-TC; 84443-TC; 84484-TC; 85025-TC; G0378; J2060; J7030

== ENCOUNTER 2019-06-06 23:53 | Inpatient (IN) | payer MEDICARE, OTHER ==
[~2019-06-06] VITALS: Ht 157.5 cm; Wt 44.5 kg
[~2019-06-06 23:53] MED LIST changes: +DOXA1TAB17 PO
--- NOTE | 2019-06-07 00:25 | NUR ---
PT AAOX4. BIBRA C/O ANXIOUS. PER PT, +N, FELT CP BUT SHE CALMED DOWN, IT WENT AWAY. -CP AT THE [facility] [place]. VSS. NO ACUTE DISTRESS NOTED. AWAITING MD FOR EVAL. WILL CONTINUE TO MONITOR.
[2019-06-07] MEDS ORDERED: LORAZEPAM 0.5 MG TABLET PO ONE (00:30)
[2019-06-07] MEDS ORDERED: LORAZEPAM 0.5 MG TABLET ONE (00:38)
[2019-06-07] MEDS ORDERED: ASPIRIN 325 MG TABLET ONE (00:42)
--- NOTE | 2019-06-07 00:43 | NUR ---
WELFARE DIRECTOR AT BEDSIDE FOR LABS.
[2019-06-07 00:51] LABS: BASOPHILS # (AUTO) 0.1 /CMM (0.0-0.2); EOSINOPHILS % (AUTO) 2.5 % (0.0-6.0); HEMATOCRIT 37 % (33-45); LYMPHOCYTES # (AUTO) 0.9 /CMM (0.8-4.8); LYMPHOCYTES % (AUTO) 15.7 % (20.0-44.0); MEAN CORPUSCULAR HGB CONC 33 g/dl (31.0-36.0); MEAN CORPUSCULAR VOLUME 88 fL (82-100); MONOCYTES # (AUTO) 0.5 /CMM (0.1-1.30); MONOCYTES % (AUTO) 9.1 % (2.0-12.0); NEUTROPHILS # (AUTO) 4.2 /CMM (1.8-8.9); NEUTROPHILS % (AUTO) 71.7 % (43.0-81.0); PLATELET COUNT (AUTO) 262 /CMM (150-450); RED BLOOD CELL COUNT(AUTO) 4.14 MIL/uL (4.0-5.2); WHITE BLOOD COUNT (AUTO) 5.9 K/uL (4.3-11.0)
[2019-06-07 00:59] LABS: CALCIUM, SERUM 8.9 mg/dL (8.5-10.1); CARBON DIOXIDE 26 mmol/L (21-32); CHLORIDE 103 mmol/L (98-107); GLUCOSE 106 mg/dL (74-106); POTASSIUM 3.8 mmol/L (3.5-5.1); SODIUM SERUM 140 mmol/L (136-145); UREA NITROGEN, BLOOD 24 mg/dL (7-18)
[2019-06-07] MEDS ORDERED: HEPARIN SODIUM, PORCINE 5000 UNITS/1 ML VIAL IV ONE (01:00)
[2019-06-07] MEDS ORDERED: ASPIRIN 325 MG TABLET PO ONE (01:00)
[2019-06-07] MEDS ORDERED: HEPARIN INFUSION/D5W 500 ML IV PRN (01:00)
[2019-06-07 01:04] LABS: ALANINE AMINOTRANSFERASE 15 U/L (12-78); ALBUMIN 3.4 g/dL (3.4-5.0); ALKALINE PHOSPHATASE 152 U/L (46-116); ASPARTATE AMINOTRANSFERASE 26 U/L (15-37); BILIRUBIN,DIRECT 0.1 mg/dL (0.0-0.2); BILIRUBIN,TOTAL 0.4 mg/dL (0.2-1.0); TOTAL PROTEIN, SERUM 7.3 g/dL (6.4-8.2)
[2019-06-07] MEDS ORDERED: HEPARIN INFUSION/D5W 500 ML IV ONE (01:04)
[2019-06-07] MEDS ORDERED: HEPARIN SODIUM, PORCINE 5000 UNITS/1 ML VIAL ONE (01:05)
[2019-06-07] MEDS ORDERED: IV NS 0.9% 1,000 ML IV PRN (03:25)
[2019-06-07] MEDS ORDERED: ONDANSETRON HCL/PF 4 MG/2 ML VIAL IVP PRN (03:30)
[2019-06-07] MEDS ORDERED: ACETAMINOPHEN 325 MG TABLET PO PRN (03:30)
[2019-06-07] MEDS ORDERED: Z GUARD REMEDY 2 OZ OINT TP PRN (03:30)
[2019-06-07] MEDS ORDERED: ZOLPIDEM TARTRATE 5 MG TABLET PO PRN (03:30)
--- NOTE | 2019-06-07 03:48 | NUR ---
REPORT GIVEN TO CARMELO ADAMSON FOR ARANZA.
--- NOTE | 2019-06-07 04:16 | NUR ---
PT TRASNFERED PER ACLS PROTOCOL.
[2019-06-07 04:22] VITALS: BP 145/72
--- NOTE | 2019-06-07 04:22 | NUR ---
ADMISSION 78 Y/O female admitted for chest pain. Patient is A/O x4 ambulates independently, no c/o current chest pain at this time. Tolerating RA, no c/o nausea, vomiting. Orientation to room, unit, staff. Transferred to unit with Heparin drip at 612u/h. Instructed to use call light for assistance, verbalized understanding.
[2019-06-07 04:30] VITALS: BP 145/72
--- NOTE | 2019-06-07 06:38 | NUR ---
END OF SHIFT REPORT Patient in bed, awake, A/O x4. Stable Oxygen saturation on RA. Heparin gtt at 612u/h dosing for ACS, next PTT ordered at 0757 Time. Patient denies chest pain, no c/o nausea, vomiting. Will endorse to Oncoming RN.
--- NOTE | 2019-06-07 07:20 | NUR ---
MS ADAMSON OPENING NOTES PT IN BED, AWAKE, A/O X4. DURING ROUNDS PT WENT TO THE BATHROOM, AMBULATORY WITH STEADY GAIT. PT TOLERATING RA, WITH NO ACUTE RESPIRATORY DISTRESS NOTED. PT DENIES ANY PAIN OR DISCOMFORT AT THIS TIME. ALSO DENIES ANY QUESTIONS OR CONCERNS. PIVS LFA G22 AND RFA G20, BOTH INTACT AND OPERATIONAL. IVF NS AT 75ML/HR TO LFA G22, INFUSING WELL. PT KEPT COMFORTABLE IN BED. CALL LIGHT KEPT WITHIN REACH. PT'S BED IN LOWEST, LOCKED POSITION WITH SRX3. WILL CONTINUE PLAN OF CARE. Addendum: 06/07/19 at 0754 by ALLYSON ALMARAZ RN DIMITRIS ADAMSON NOTE NOT MS
--- NOTE | 2019-06-07 07:25 | NUR ---
INTERNAL COMBUSTION ENGINEER OPENING NOTES PT IN BED, AWAKE, A/O X4. DURING ROUNDS PT WENT TO THE BATHROOM, AMBULATORY WITH STEADY GAIT. PT TOLERATING RA, WITH NO ACUTE RESPIRATORY DISTRESS NOTED. PT DENIES ANY PAIN OR DISCOMFORT AT THIS TIME. ALSO DENIES ANY QUESTIONS OR CONCERNS. ON TELEMONITORING SB AT 59, PT DENIES CHEST PAIN. PIVS LFA G22 AND RFA G20, BOTH INTACT AND OPERATIONAL. IVF NS AT 75ML/HR TO LFA G22, INFUSING WELL. PT KEPT COMFORTABLE IN BED. CALL LIGHT KEPT WITHIN REACH. PT'S BED IN LOWEST, LOCKED POSITION WITH SRX3. WILL CONTINUE PLAN OF CARE.
--- NOTE | 2019-06-07 07:40 | NUR ---
RN NOTES PER NAIL PROFESSIONAL NURSE, HEPARIN DRIP STOPPED BY AT 0653. WILL CONTINUE TO MONITOR PT.
[2019-06-07 08:00] VITALS: BP 130/69
[2019-06-07] MEDS: SERTRALINE HCL 25 MG TABLET PO SCH (08:46)
[2019-06-07] MEDS: LEVOTHYROXINE SODIUM 25 MCG TABLET PO SCH (08:47)
[2019-06-07] MEDS: ASPIRIN EC 81 MG TABLET.DR PO SCH (08:48)
[2019-06-07] MEDS: LOSARTAN POTASSIUM 50 MG TABLET PO SCH ×2 (08:49→18:03)
--- NOTE | 2019-06-07 10:13 | NUR ---
MS RN NOTES PT COMPLAINED OF CHEST PAIN, RADIATES TO BOTH SHOULDER AND UPPER ARM. PT REFUSES TO HAVE ANY KIND OF MEDICATIONS AND ONLY WANTS TO TAKE A NAP AT THIS TIME. PT STATING SHE'S NOT TAKING NITROGLYCERIN AND STRONG MEDICINES. PT NOT IN ANY DISCOMFORT AT THE MOEMNT AND APPEARS NOT IN DISTRESS. PT TOLERATING RA WELL.
--- NOTE | 2019-06-07 10:15 | NUR ---
MS RN NOTES PT ALSO STATED SHE'S FEELING NAUSEOUS AND NO ANTI EMETICS IS EFFECTIVE FOR HER. PREFERS TO TAKE L[place]ON [place] AT THIS TIME. RN GAVE IT REQUESTED. HOSPITALIST/NN CAME AND SEEN THE PT; EVALUATED. ORDERED FOR PSYCH EVAL. FACE SHEET FAXED TO [employer].
[2019-06-07] MEDS: LORAZEPAM 1 MG TABLET PO PRN (12:59)
--- NOTE | 2019-06-07 13:00 | NUR ---
MS RN NOTES CALLED [employer] AND STATED DR TURNER PRESENT IN THE UNIT AND MADE AWARE OF CONSULT.
[2019-06-07 16:00] VITALS: BP 126/81
--- NOTE | 2019-06-07 16:40 | NUR ---
MS RN NOTES PT STATED SHE'S NOT TALKING LOSARTAN 50MG BID AND USED TO TAKE AMLODIPINE 2.5MG BID. HOSPITALIST/NN MADE AWARE. NO NEW ORDERS AT THIS TIME. EXPLAINED TO PT AND INSISTED TO REFUSE.
[2019-06-07] MEDS ORDERED: RIVAROXABAN 10 MG TABLET PO SCH (17:00)
--- NOTE | 2019-06-07 18:20 | NUR ---
MS RN NOTES PT'S US OF KIDNEYS NOT SIGNED UP TO THIS MOMENT. WILL UPDATE PT FOR RESULT WHEN IT BECOMES AVAILABLE.
--- NOTE | 2019-06-07 18:37 | NUR ---
MS RN CLOSING NOTES PT REMAINS IN BED, AWAKE, A/O X4. AMBULATORY WITH STEADY GAIT. PT TOLERATING RA, WITH NO ACUTE RESPIRATORY DISTRESS NOTED. PT DENIES ANY PAIN OR DISCOMFORT AT THIS TIME. PIVS LFA G22 AND RFA G20, BOTH INTACT AND OPERATIONAL. ALL NEEDS AND CARE ATTENDED. PT KEPT COMFORTABLE IN BED. CALL LIGHT KEPT WITHIN REACH. PT'S BED IN LOWEST, LOCKED POSITION WITH SRX3. WILL ENDORSE TO INCOMING DIRECTOR CENTER NURSE FOR ARANZA.
--- NOTE | 2019-06-07 19:28 | NUR ---
CHANGE OF SHIFT REPORT Patient in awake, ambulates independently. Denies any discomfort, tolerating RA. Independent with ADL. Awaiting psych consult. Safety measure in place.
[2019-06-07 20:00] VITALS: BP 119/73
[2019-06-07 20:40] VITALS: BP 119/73
[2019-06-07] MEDS ORDERED: DOXAZOSIN MESYLATE (1 MG) 1 MG TABLET PO SCH ×2 (22:00)
[2019-06-07] MEDS ORDERED: METOPROLOL SUCCINATE 50 MG TAB.SR.24H PO SCH (22:00)
[2019-06-08] MEDS: LORAZEPAM 1 MG TABLET PO PRN (05:09)
--- NOTE | 2019-06-08 06:28 | NUR ---
END OF SHIFT REPORT Patient in bed, A/O x4. Episode of anxiety controlled with PRN Ativan PO, denies shortness of breath. No c/o chest pain, denies nausea, vomiting. Renal US pending result. Independent with ADL. Fall precaution maintained. Awaiting Psych consult. Will endorse to Oncoming RN.
[2019-06-08 07:25] LABS: BASOPHILS # (AUTO) 0.1 /CMM (0.0-0.2); EOSINOPHILS % (AUTO) 2.4 % (0.0-6.0); HEMATOCRIT 39 % (33-45); HEMOGLOBIN 12.8 g/dL (11.5-14.8); LYMPHOCYTES # (AUTO) 0.8 /CMM (0.8-4.8); LYMPHOCYTES % (AUTO) 15.3 % (20.0-44.0); MEAN CORPUSCULAR HGB CONC 33 g/dl (31.0-36.0); MEAN CORPUSCULAR VOLUME 88 fL (82-100); MONOCYTES # (AUTO) 0.5 /CMM (0.1-1.30); NEUTROPHILS # (AUTO) 3.8 /CMM (1.8-8.9); NEUTROPHILS % (AUTO) 72.3 % (43.0-81.0); PLATELET COUNT (AUTO) 249 /CMM (150-450); RED BLOOD CELL COUNT(AUTO) 4.43 MIL/uL (4.0-5.2); WHITE BLOOD COUNT (AUTO) 5.2 K/uL (4.3-11.0)
--- NOTE | 2019-06-08 07:30 | NUR ---
MS/RN OPENING NOTE Patient received resting in bed, A/O x4, anxious, showing no signs of SOB, saturating well on RA. IV line is clean and intact s/l. Patient has no complaints of pain at this time. Bed is in lowest position, side rails x2 in upright position, call light is within reach and patient is aware of how to call for assistance when needed. Will continue with plan of care.
[2019-06-08 07:48] LABS: CALCIUM, SERUM 8.8 mg/dL (8.5-10.1); MAGNESIUM 2.1 mg/dL (1.8-2.4); PHOSPHORUS 3.6 mg/dL (2.5-4.9); POTASSIUM 3.5 mmol/L (3.5-5.1)
[2019-06-08 08:00] VITALS: BP 129/71
[2019-06-08] MEDS: LEVOTHYROXINE SODIUM 25 MCG TABLET PO SCH (08:15)
[2019-06-08] MEDS: SERTRALINE HCL 25 MG TABLET PO SCH (08:22)
[2019-06-08] MEDS: ASPIRIN EC 81 MG TABLET.DR PO SCH (08:23)
[2019-06-08 10:29] VITALS: BP 128/76
[2019-06-08] MEDS: LOSARTAN POTASSIUM 50 MG TABLET PO SCH (10:29)
--- NOTE | 2019-06-08 15:51 | NUR ---
MS/MULTIPLE NEEDLE STITCHER NOTE Patient is medically stable for discharge, A/O x4, patient is in no acute distress, breathing is even and unlabored, no SOB noted. Vital signs WNL. DC instructions provided, patient verbalized understanding. IV removed, ID band removed. Skin is intact. Patient has all belongings with them, belongings list signed. Patient kept clean and dry throughout shift, all patient needs met, all due meds given. MD is aware of discharge. Patient left the unit with BAKER HELPER and picked up by personal driver on her way to home.
== END 2019-06-08 13:20 | disposition home or self-care (01) | DRG 880 ==
LOC: ER 23:53 → TELE 06-07 02:52 → MED 06-07 09:37
PROVIDERS: ADMIT Nurse Practitioner Acute Care; ATTEND Nurse Practitioner Acute Care
DX: F41.9 Anxiety disorder, unspecified (principal); E43 Unspecified severe protein-calorie malnutrition; Z68.1 Body mass index [BMI] 19.9 or less, adult; R64 Cachexia; F43.10 Post-traumatic stress disorder, unspecified; I10 Essential (primary) hypertension; F32.9 Major depressive disorder, single episode, unspecified; I25.2 Old myocardial infarction; Z95.5 Presence of coronary angioplasty implant and graft; Z79.01 Long term (current) use of anticoagulants; E89.0 Postprocedural hypothyroidism; G47.9 Sleep disorder, unspecified; Z88.0 Allergy status to penicillin; Z88.2 Allergy status to sulfonamides
CPT/HCPCS: 36415; 71045-TC; 80048-TC; 80061-TC; 80076-TC; 83735-TC; 84100-TC; 84484-TC; 85025-TC; 85730-TC; 87081-TC; G0378; J1644; J7030

== ENCOUNTER 2019-06-15 18:46 | Emergency (ER) | payer OTHER, MEDICARE ==
[~2019-06-15] VITALS: Ht 157.5 cm; Wt 40.8 kg
[~2019-06-15 18:46] MED LIST changes: -AMLO2.5T2 PO
--- NOTE | 2019-06-15 18:50 | NUR ---
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 1/10PS AT THIS TIME. TO ER BED 10, HOOKED TO MONITOR, CHANGED TO HOSP GOWN, WARM BLANKET PROVIDED. PATIENT AOX 4, BREATHING EVEN AND UNLABORED. AWAITING MD LUNA.
--- NOTE | 2019-06-15 18:54 | NUR ---
DR LOPEZ AT BEDSIDE
[2019-06-15 19:13] LABS: BASOPHILS # (AUTO) 0.1 /CMM (0.0-0.2); BASOPHILS % (AUTO) 1.2 % (0.0-2.0); EOSINOPHILS % (AUTO) 1.8 % (0.0-6.0); HEMATOCRIT 38 % (33-45); HEMOGLOBIN 12.6 g/dL (11.5-14.8); LYMPHOCYTES # (AUTO) 1.3 /CMM (0.8-4.8); LYMPHOCYTES % (AUTO) 30.2 % (20.0-44.0); MEAN CORPUSCULAR HGB CONC 33 g/dl (31.0-36.0); MEAN CORPUSCULAR VOLUME 88 fL (82-100); MONOCYTES # (AUTO) 0.4 /CMM (0.1-1.30); MONOCYTES % (AUTO) 10.1 % (2.0-12.0); NEUTROPHILS # (AUTO) 2.4 /CMM (1.8-8.9); NEUTROPHILS % (AUTO) 56.7 % (43.0-81.0); PLATELET COUNT (AUTO) 253 /CMM (150-450); RED BLOOD CELL COUNT(AUTO) 4.29 MIL/uL (4.0-5.2); WHITE BLOOD COUNT (AUTO) 4.3 K/uL (4.3-11.0)
--- NOTE | 2019-06-15 19:17 | NUR ---
REPORT GIVEN TO HUY ADAMSON FOR ARANZA
[2019-06-15 19:21] LABS: CALCIUM, SERUM 8.8 mg/dL (8.5-10.1); CARBON DIOXIDE 26 mmol/L (21-32); CHLORIDE 106 mmol/L (98-107); CREATININE 0.9 mg/dL (0.6-1.3); GLUCOSE 90 mg/dL (74-106); POTASSIUM 3.3 mmol/L (3.5-5.1); SODIUM SERUM 141 mmol/L (136-145); UREA NITROGEN, BLOOD 14 mg/dL (7-18)
[2019-06-15] MEDS ORDERED: ALPRAZOLAM 0.25 MG TABLET ONE (19:25)
[2019-06-15] MEDS ORDERED: ALPRAZOLAM 0.25 MG TABLET PO ONE (19:30)
--- NOTE | 2019-06-15 19:50 | NUR ---
CALLED ASAD FOR READ
[2019-06-15] MEDS ORDERED: POTASSIUM CHLORIDE 20 MEQ TAB.PRT.SR PO ONE ×2 (20:00→20:04)
--- NOTE | 2019-06-15 21:06 | NUR ---
IV removed. Catheter intact and site benign. Pressure and 4x4 applied to site. No bleeding noted.Patient discharged to home in stable condition. Written and verbal after care instructions given. Patient verbalizes understanding of instruction.
[2019-06-15 23:35] VITALS: BP 141/77
== END 2019-06-15 21:06 | disposition home or self-care (01) ==
LOC: ER 18:48
DX: F41.9 Anxiety disorder, unspecified (principal); E87.6 Hypokalemia; I10 Essential (primary) hypertension; E03.9 Hypothyroidism, unspecified; I25.2 Old myocardial infarction; F32.9 Major depressive disorder, single episode, unspecified; F43.10 Post-traumatic stress disorder, unspecified; Z90.710 Acquired absence of both cervix and uterus; Z90.89 Acquired absence of other organs; Z98.890 Other specified postprocedural states; Z60.2 Problems related to living alone; Z79.899 Other long term (current) drug therapy; Z79.82 Long term (current) use of aspirin; Z88.1 Allergy status to other antibiotic agents; Z88.8 Allergy status to other drugs, medicaments and biological substances; Z88.6 Allergy status to analgesic agent
CPT/HCPCS: 36415; 71045-TC; 80048-TC; 84484-TC; 85025-TC